=== PATIENT | female | born 1955 | race Caucasian/White ===

== ENCOUNTER 2016-05-02 12:05 | Observation (INO) | payer OTHER ==
[~2016-05-02] VITALS: Ht 157.5 cm; Wt 84.5 kg
[~2016-05-02 12:05] MED LIST: ALBU1AER9; ALBUAER19 INH; CHOL100010 PO; OMEG10007 PO; VITACAP26
[2016-05-02] MEDS ORDERED: CHOL100010 PO (12:50)
[2016-05-02] MEDS ORDERED: PRED10TA PO (12:53)
[2016-05-02 12:58] LABS: HEMATOCRIT 41.6 % (37-47); MEAN CELL VOLUME 83.7 fL (80-100); MEAN CORPUSCULAR HEMOGLOBIN 29.8 pg (25-34); MEAN CORPUSCULAR HGB CONC 35.6 g/dl (32-36); MEAN PLATELET VOLUME 9.3 fL (7.4-10.4); PLATELET COUNT 308 K/uL (130-400); RED BLOOD COUNT 4.97 M/uL (4.2-5.4); WHITE BLOOD COUNT 12.81 K/uL (4.8-10.8)
[2016-05-02 13:13] LABS: PARTIAL THROMBOPLASTIN RATIO 0.9; PROTHROMBIN TIME (PATIENT) 10.5 SECONDS (9.0-12.0)
[2016-05-02 13:14] LABS: ALT/SGPT 31 U/L (12-78); BLOOD UREA NITROGEN 25 mg/dl (7-18); BUN/CREATININE RATIO 22.4 (10-20); CALCIUM 10.1 mg/dl (8.5-10.1); CARBON DIOXIDE 24 mmol/L (21-32); CHLORIDE 104 mmol/L (98-107); GLUCOSE 145 mg/dl (70-99); POTASSIUM 3.9 mmol/L (3.5-5.1); SODIUM 140 mmol/L (136-145)
[2016-05-02 13:19] LABS: ALB/GLOB RATIO 1.4 (0.9-2); ALKALINE PHOSPHATASE 63 U/L (45-117); AST/SGOT 12 U/L (15-37)
--- NOTE | 2016-05-02 13:21 | DIAGNOSTIC IMAGING REPORT ---
CHEST ONE VIEW PORTABLE CLINICAL HISTORY: cp dyspnea COMPARISON STUDY: 06/06/2007 FINDINGS: The bones soft tissues and hemidiaphragms are normal. The cardiomediastinal silhouette is normal. The lungs are clear. The pulmonary vasculature is normal. IMPRESSION: Negative chest. Electronically signed by: Jonatan Alves M.D. 05/02/2016 1:19 PM Dictated Date/Time: 05/02/2016 1:19 PM
--- NOTE | 2016-05-02 15:13 | History and Physical ---
History & Physical Date & Time of Service: May 02, 2016 at 15:05 Chief Complaint: Chest Pressure, Shoulder Pain Primary Care Physician: Gary Black M.D. History of Present Illness Source: patient, hospital records This patient is a pleasant 60-year-old female that presents emergency department complaining of heaviness in her chest that started around 2 AM this morning. She is still experiencing the discomfort now. It has been fairly constant since it started. She describes it as a pressure-like sensation. she also complains of a squeezing sensation on both sides of her ribs. The pain is worse on the right side of her chest. It does not radiate to her arms or face. She tried taking Tums because she thought it was indigestion. This did not change the pain. She got up and walked around the bedroom, again the pain remained unchanged. She denies any shortness of breath. No nausea, dizziness or sweating. No recent syncopal or presyncopal episodes. The patient denies any personal history of coronary disease. She had a normal stress test approximately 5 years ago. The patient does note that she has been suffering from a cold over the last week. Her symptoms are improving. She has a history of asthma. She typically starts taking prednisone when she develops a cough so does not turn into long- term bronchitis. Her last dose of prednisone is tomorrow. She denies any fever or chills. Past Medical/Surgical History Hypertension Asthma Borderline diabetes Family History Diabetes mellitus FHx: cancer FHx: gallbladder disease Social History Smoking Status: Never Smoker Smokeless Tobacco Use: No Alcohol Use: none Drug Use: none Marital Status: Housing status: lives with family Occupational Status: employed Immunizations History of Influenza Vaccine: Yes History of Tetanus Vaccine?: Yes History of Pneumococcal: Yes History of Hepatitis B Vaccine: Yes Multi-Drug Resistant Organisms History of MDRO: No Allergies Coded Allergies: No Known Allergies (Verified , `, 05/02/16) Home Medications Scheduled Albuterol Hfa (Ventolin Hfa), 2-4 PUFFS INH Q6H Ascorbic Acid (Vitamin C), 500 MG PO DAILY Aspirin (Aspirin Ec), 81 MG PO DAILY Cholecalciferol (Vitamin D), 2,000 INTER.UNIT PO DAILY Lisinopril (Zestril), 10 MG PO DAILY Metformin Hcl (Glucophage), 500 MG PO BIDM Multivitamin (Multivitamin), 1 TAB PO DAILY Prednisone Tab (Prednisone), 10 MG PO DAILY Probiotic Product (Probiotic), 1 CAP PO DAILY Scheduled PRN Albuterol Sulf (Albuterol Sulfate), 2.5 MG NEB Q6H PRN for PRN Miscellaneous Medications Wheat Dextrin (Benefiber) Review of Systems 10 system review performed and negative unless noted in HPI or below Physical Exam Vital Signs Date Time Temp Pulse Resp B/P Pulse Ox O2 Delivery O2 Flow Rate FiO2 05/02/16 14:20 76 14 95 05/02/16 14:15 75 14 94 05/02/16 14:10 76 15 96 05/02/16 14:05 78 14 94 05/02/16 14:00 83 17 94 05/02/16 13:58 130/87 05/02/16 13:55 79 14 94 05/02/16 13:50 80 14 94 05/02/16 13:45 82 14 94 05/02/16 13:40 84 14 94 05/02/16 13:35 81 14 93 05/02/16 13:30 78 13 92 05/02/16 13:28 146/91 05/02/16 13:26 84 18 142/96 96 Room Air 05/02/16 13:25 83 17 96 05/02/16 13:24 142/96 05/02/16 13:00 84 17 96 05/02/16 12:59 193/111 05/02/16 12:55 90 18 96 05/02/16 12:53 37.0 100 18 163/96 96 Room Air 05/02/16 12:50 82 13 94 05/02/16 12:45 85 17 96 05/02/16 12:41 96 Room Air 05/02/16 12:40 92 20 94 05/02/16 12:35 88 26 05/02/16 12:32 100 05/02/16 12:30 96 16 05/02/16 12:28 143/83 05/02/16 12:24 98 Room Air 05/02/16 12:24 98 Room Air 05/02/16 12:10 37.0 98 18 163/96 98 Room Air General Appearance: no apparent distress Head: normocephalic Eyes: EOMI Neck: no JVD Respiratory/Chest: lungs clear Cardiovascular: regular rate, rhythm, + systolic murmur (very faint systolic murmur noted heard best at the left lower sternal border) Abdomen/GI: non tender, soft Extremities/Musculoskelatal: no calf tenderness, no pedal edema Neurologic/Psych: no motor/sensory deficits, oriented x 3 Skin: warm/dry Diagnostics Laboratory Results Results Past 24 Hours Test 05/02/16 12:30 05/02/16 12:45 Range/Units White Blood Count 12.81 4.8-10.8 K/uL Red Blood Count 4.97 4.2-5.4 M/uL Hemoglobin 14.8 12.0-16.0 g/dL Hematocrit 41.6 37-47 % Mean Corpuscular Volume 83.7 80-100 fL Mean Corpuscular Hemoglobin 29.8 25-34 pg Mean Corpuscular Hemoglobin Concent 35.6 32-36 g/dl RDW Standard Deviation 39.2 36.4-46.3 fL RDW Coefficient of Variation 13.1 11.5-14.5 % Platelet Count 308 130-400 K/uL Mean Platelet Volume 9.3 7.4-10.4 fL Prothrombin Time 10.5 9.0-12.0 SECONDS Prothromb Time International Ratio 1.0 0.9-1.1 Activated Partial Thromboplast Time 23.5 21.0-31.0 SECONDS Partial Thromboplastin Ratio 0.9 Sodium Level 140 136-145 mmol/L Potassium Level 3.9 3.5-5.1 mmol/L Chloride Level 104 98-107 mmol/L Carbon Dioxide Level 24 21-32 mmol/L Anion Gap 12.0 3-11 mmol/L Blood Urea Nitrogen 25 7-18 mg/dl Creatinine 1.10 0.60-1.20 mg/dl Est Creatinine Clear Calc Drug Dose 55.8 ml/min Estimated GFR () 63.2 Estimated GFR (Non- 54.5 BUN/Creatinine Ratio 22.4 10-20 Random Glucose 145 70-99 mg/dl Calcium Level 10.1 8.5-10.1 mg/dl Total Bilirubin 0.4 0.2-1 mg/dl Aspartate Amino Transf (AST/SGOT) 12 15-37 U/L Alanine Aminotransferase (ALT/SGPT) 31 12-78 U/L Alkaline Phosphatase 63 45-117 U/L Total Creatine Kinase 23 26-192 U/L Creatine Kinase MB < 0.5 0.5-3.6 ng/ml Creatine Kinase MB Ratio 0-3.0 Total Protein 7.2 6.4-8.2 gm/dl Albumin 4.2 3.4-5.0 gm/dl Globulin 3.0 2.5-4.0 gm/dl Albumin/Globulin Ratio 1.4 0.9-2 Bedside Troponin I 0.000 0-0.045 ng/ml CXR normal EKG Normal sinus rhythm with a rate of 88 bpm No acute ischemic changes noted Impression Assessment and Plan 60-year-old female presents emergency department complaining of a chest squeezing/pressure-like sensation for approximately 12 hours-? cardiac cause vs possibly GB disease chest pain -observe in telemetry -follow cardiac enzymes every 8 hr x 2 -daily EKG -EKG with worsening pain -continue ASA -US gallbladder -Nitro paste 1 in q 6 hr -check echo HTN -continue lisinopril 10 mg daily Borderline diabetes -Continue metformin 500 mg BID -Insulin sliding scale -Accu-Cheks in the morning, evening and with meals -Check hemoglobin A1c Asthma-lungs clear -Continue prednisone 10 mg daily DVT prophylaxis -Teds, SCDs -Early ambulation CODE STATUS -LEVEL I FULL CODE Level of Care Telemetry Resuscitation Status FULL NO CARDIOVERSION VTE Prophylaxis VTE Risk Assessment Done? Y/N: Yes Risk Level: Low Given or contraindicated: Kali Stockings, SCD's Assessment and Plan Attending Addendum: I have physically seen and examined this patient, have directed their medical care, have supervised the PA's activity, and agree with the H&P as noted above, with the following changes: NONE. The patient is awake, well-developed and adequately nourished, alert and oriented 3, normocephalic and atraumatic, lying in bed and in no acute distress. HEENT--PERRL, EOMI, mucous membranes and oropharynx moist. Neck--supple, no JVD or bruits, thyroid normal, trachea midline, no adenopathy. Heart--normal S1 and S2, no extra beats, no murmurs, rubs or gallops. Lungs--clear bilaterally with good air movement, no respiratory distress, no accessory muscle use. Abdomen--normal bowel sounds and soft, nontender and nondistended, no hernias or masses, no organomegaly. Extremities--no cyanosis, clubbing or edema. There are good distal pulses b/l. Dermatologic--normal skin turgor, normal color, warm and dry, no abnormal lymph nodes, no rash. Neurologic--cranial nerves II through XII grossly intact, motor and sensory examination normal. Rheumatologic--normal range of motion, nontender, muscles and joints. Psychiatric--normal affect. Assessment and Plan: Precordial chest discomfort--admitted to the telemetry unit, for serial critic enzymes, cardiac rhythm monitoring and a 2-D echocardiogram with Dopplers. Continue lisinopril 10 mg by mouth daily and aspirin 81 mg by mouth daily. If workup is negative, she'll need a stress echocardiogram prior to discharge.
[2016-05-02] MEDS ORDERED: ALUMINUM/MAGNESIUM/SIMETH (MAALOX MAX) 30 ML UDC PO PRN (15:15)
[2016-05-02] MEDS ORDERED: ACETAMINOPHEN 325 MG TAB PO PRN (15:15)
[2016-05-02] MEDS ORDERED: ONDANSETRON INJ 2 MG/ML 2 ML VIAL IV PRN (15:15)
--- NOTE | 2016-05-02 15:21 | EMERGENCY ROOM VISIT NOTE ---
History Report prepared by Portillo: Kae Nowak Under the Supervision of: Dr. Angel Oliva M.D. First contact with patient: 12:52 Chief Complaint: CHEST PAIN Stated Complaint: CHEST PRESSURE, SHOULDER PAIN Nursing Triage Summary: see triage note. at this time states chest pain and pain between shoulder blades "gone" but still feels funny History of Present Illness The patient is a 60 year old female who presents to the Emergency Room with complaints of resolved chest pain that started this morning around 0430. She states that it feels like someone is squeezing her sides. Nothing seems to make the pain better or worse. The pain woke the patient up from sleep and she could not get comfortable so she never went back to sleep. The patient got up and ate breakfast then she went grocery shopping. After grocery shopping, she developed a sharp pain between her shoulder blades along with pressure in her chest. She did not experience shortness of breath. She denies fevers along with recent antibiotic use. She also denies bowel or bladder problems, hematochezia, melena , numbness, and weakness. She is also experiencing lower extremity edema in her ankles, but she states that is not new. The patient states that she is getting over a cough, but she has not used her nebulizer for the past 3 days. She states that her cough is pretty much gone. The patient went to see her PCP for the cough and they started her on a prednisone taper. She finished the taper today. Additionally, the patient has been experiencing a persistent headache since her cough started. The patient takes a baby aspirin daily, but she has not taken one yet today. The patient has a history of hypertension and prediabetes. She denies any history of blood clots, trauma, or injury. She also denies any cardiac history. The patient adds that she experienced chest pain in 2008 with anxiety attacks. However, she denies any recent stress to cause her to have anxiety. The patient also states that she did not have the pain between her shoulder blades with that chest pain. The patient has not had a stress test recently. The patient adds that her mother had a cholecystectomy and her brother just recently had one also, so she was wondering if that was contributing to her symptoms. Source of History: patient Onset: this morning around 0430 Position: chest Quality: other (squeezing her sides) Timing: resolved Modifying Factors (Worsening): other (None) Modifying Factors (Relieving): other (None) Associated Symptoms: + headache, No SOB, No fevers, No hematochezia, No melena, No numbness, No weakness Note: no bowel or bladder problems Review of Systems See HPI for pertinent positives & negatives. A total of 10 systems reviewed and were otherwise negative. Past Medical & Surgical Medical Problems: (1) Asthma, Unspecified (2) Chest pain (3) Diab Donna Wo Compl, Type Ii Or Unspec Type, Not Uncntrld (4) Hypertension Nos Old medical records were reviewed. Nurse's notes were reviewed and I agree with. Family History Diabetes mellitus FHx: cancer FHx: gallbladder disease Social History Smoking Status: Never Smoker Marital Status: Housing Status: lives with family Current/Historical Medications Scheduled Albuterol Hfa (Ventolin Hfa), 2-4 PUFFS INH Q6H Ascorbic Acid (Vitamin C), 500 MG PO DAILY Aspirin (Aspirin Ec), 81 MG PO DAILY Cholecalciferol (Vitamin D), 2,000 INTER.UNIT PO DAILY Lisinopril (Zestril), 10 MG PO DAILY Metformin Hcl (Glucophage), 500 MG PO BIDM Multivitamin (Multivitamin), 1 TAB PO DAILY Prednisone Tab (Prednisone), 10 MG PO DAILY Probiotic Product (Probiotic), 1 CAP PO DAILY Scheduled PRN Albuterol Sulf (Albuterol Sulfate), 2.5 MG NEB Q6H PRN for PRN Miscellaneous Medications Wheat Dextrin (Benefiber) Allergies Coded Allergies: No Known Allergies (Verified , `, 05/02/16) Physical Exam Vital Signs Date Time Temp Pulse Resp B/P Pulse Ox O2 Delivery O2 Flow Rate FiO2 05/02/16 15:15 92 17 96 05/02/16 15:10 75 19 98 05/02/16 15:05 77 18 96 05/02/16 15:00 80 17 98 05/02/16 14:58 169/96 05/02/16 14:55 87 17 97 05/02/16 14:50 82 19 96 05/02/16 14:45 80 18 97 05/02/16 14:40 73 12 93 05/02/16 14:35 73 13 94 05/02/16 14:30 72 13 96 05/02/16 14:28 125/83 2/13/17 14:25 74 12 95 05/02/16 14:20 76 14 95 05/02/16 14:15 75 14 94 05/02/16 14:10 76 15 96 05/02/16 14:05 78 14 94 05/02/16 14:00 83 17 94 05/02/16 13:58 130/87 05/02/16 13:55 79 14 94 05/02/16 13:50 80 14 94 05/02/16 13:45 82 14 94 05/02/16 13:40 84 14 94 05/02/16 13:35 81 14 93 05/02/16 13:30 78 13 92 05/02/16 13:28 146/91 05/02/16 13:26 84 18 142/96 96 Room Air 05/02/16 13:25 83 17 96 05/02/16 13:24 142/96 05/02/16 13:00 84 17 96 05/02/16 12:59 193/111 05/02/16 12:55 90 18 96 05/02/16 12:53 37.0 100 18 163/96 96 Room Air 05/02/16 12:50 82 13 94 05/02/16 12:45 85 17 96 05/02/16 12:41 96 Room Air 05/02/16 12:40 92 20 94 05/02/16 12:35 88 26 05/02/16 12:32 100 05/02/16 12:30 96 16 05/02/16 12:28 143/83 05/02/16 12:24 98 Room Air 05/02/16 12:24 98 Room Air 05/02/16 12:10 37.0 98 18 163/96 98 Room Air Physical Exam General: Well developed well nourished non-ill appearing middle-aged female in no acute distress, breathing comfortably on room air. Normal speech HEENT: Normal cephalic atraumatic. Pupils are equal round and reactive to light. Extraocular movements are intact. Oropharynx is pink with moist mucous membranes. No swelling of the mouth lips or tongue. Neck: Supple with a midline trachea. No meningeal signs or stiffness, no JVD or bruits. No Stridor. Chest: Clear to auscultation bilaterally. No wheezes or rhonchi. No increased work of breathing. Heart: regular rate and rhythm. Abdomen: Soft nontender, nondistended without rebound guarding or rigidity. Extremities: Trace pedal edema bilaterally. No cyanosis or clubbing. No calf tenderness or assymetry Spine/Back. Non tender to palpation. No CVA tenderness Skin: Good turgor without rashes. Neurologic exam: Cranial nerves two through 12 are intact. Motor and sensation are intact and symmetrical throughout. Medical Decision & Procedures ER Provider Diagnostic Interpretation: X-ray results as stated below per interpretation by me and the radiologist: CHEST ONE VIEW PORTABLE IMPRESSION: Negative chest. Electronically signed by: Jonatan Alves M.D. 05/02/2016 1:19 PM Dictated Date/Time: 05/02/2016 1:19 PM Laboratory Results Test 05/02/16 12:30 05/02/16 12:45 Prothrombin Time 10.5 SECONDS (9.0-12.0) Prothromb Time International Ratio 1.0 (0.9-1.1) Activated Partial Thromboplast Time 23.5 SECONDS (21.0-31.0) Partial Thromboplastin Ratio 0.9 Total Bilirubin 0.4 mg/dl (0.2-1) Aspartate Amino Transf (AST/SGOT) 12 U/L (15-37) Alanine Aminotransferase (ALT/SGPT) 31 U/L (12-78) Alkaline Phosphatase 63 U/L (45-117) Total Protein 7.2 gm/dl (6.4-8.2) Albumin 4.2 gm/dl (3.4-5.0) Globulin 3.0 gm/dl (2.5-4.0) Albumin/Globulin Ratio 1.4 (0.9-2) Bedside Troponin I 0.000 ng/ml (0-0.045) Laboratory studies as stated above per my review. ECG Indication: chest pain Rate (beats per minute): 88 Rhythm: normal sinus Findings: no acute ischemic change, no ectopy Comparison ECG Date: 07/29/2009 Change: no significant change ED Course 1252: Past medical records reviewed. The patient was evaluated in room C12, and a complete history and physical examination were performed. 1439: I discussed the patient's case with Dr. Mitchell ST. The patient will be evaluated for further management. 1444: Upon reevaluation, the patient is resting comfortably. I discussed the results and treatment plan with the patient. She verbalized agreement of the treatment plan. The patient will be evaluated for further management. Medical Decision Differentials include, but are not limited to; acute coronary syndrome, arrhythmia, congestive heart failure, pulmonary embolism, gallbladder disease, electrolyte or metabolic abnormality. This patient comes in as described above. She's had intermittent chest pain. She does have a few cardiac risk factors and she appears well at present. She was placed on a cardiac technologist and room C 12 and an extensive workup was done. EKG, chest x-ray, and multiple blood testing was obtained. She has a nonischemic appearing EKG. Chest x-ray does not suggest heart failure or pneumonia or pneumothorax or cardiac enzymes are negative thus far. She's had nothing thus far to suggest gallbladder, liver, or pancreas disease. Given her cardiac risk factors, I do think she needs to be admitted to rule out acute cardiac events. I did consult the hospitalist group. He saw her in the ER and will admit her for these measures. Consults Time Called: [phone] Consulting Physician: Dr. Mitchell ST Returned Call: [phone] I discussed the patient's case with Dr. Mitchell ST. The patient will be evaluated for further management. Impression Primary Impression: Precordial chest pain Scribe Attestation The scribe's documentation has been prepared under my direction and personally reviewed by me in its entirety. I confirm that the note above accurately reflects all work, treatment, procedures, and medical decision making performed by me. Departure Information Dispostion Being Evaluated By Hospitalist Referrals Gary Black M.D. (PCP) Patient Instructions My [facility]
[2016-05-02] MEDS ORDERED: IV FLUIDS COMPLETED PRN (16:00)
--- NOTE | 2016-05-02 16:30 | DIAGNOSTIC IMAGING REPORT ---
ULTRASOUND RIGHT UPPER QUADRANT ABDOMEN CLINICAL HISTORY: Right upper quadrant abdominal pain. COMPARISON STUDY: Abdominal CT dated 09/20/2013. TECHNIQUE: Real-time, grayscale, and color flow sonography of the right upper quadrant of the abdomen was performed. Images are reviewed in the transverse and longitudinal planes. FINDINGS: Liver: The liver is normal in size and echotexture. There is no intrahepatic biliary ductal dilatation. The main portal vein is patent. A 2.6 cm cyst in the right lobe is unchanged. Gallbladder: The gallbladder is normal in appearance. No gallstones are identified. There is no gallbladder wall thickening or pericholecystic fluid. A sonographic Hutchins's sign is reportedly absent. The common bile duct measures up to 0.5 cm in diameter. Pancreas: Not visualized due to overlying bowel gas. Right kidney: Survey images of the right kidney demonstrate normal size and echotexture. There is no hydronephrosis. Ascites: None. IMPRESSION: 1. No acute sonographic abnormality is identified in the right upper quadrant. No gallstones are seen. 2. The pancreas was not well assessed due to overlying bowel gas. Electronically signed by: Real Flores M.D. 05/02/2016 4:28 PM Dictated Date/Time: 05/02/2016 4:27 PM
[2016-05-02 18:58] VITALS: BP 139/100; TEMP 37; O2SAT 93; Ht 157.5 cm; Wt 84.5 kg
[2016-05-02] MEDS ORDERED: GLUCAGON FOR INJ 1 MG VIAL SQ PRN (19:30)
[2016-05-02] MEDS ORDERED: GLUCOSE 10 TABS/TUBE PO PRN (19:30)
[2016-05-02] MEDS ORDERED: ALBUTEROL 0.083% NEBU SOLN 3 ML VIAL INH PRN (19:30)
[2016-05-02] MEDS ORDERED: DEXTROSE 50% 50 ML SYR IV PRN (19:30)
[2016-05-02] MEDS ORDERED: GLUCOSE 40% GEL 15 GM TUBE PO PRN (19:30)
[2016-05-02 19:57] VITALS: BP 126/84; PULSE 83; TEMP 36.8; O2SAT 93
[2016-05-02 20:00] VITALS: O2SAT 93
[2016-05-02] MEDS: NITROGLYCERIN OINT 2% 1GM PACKET EXT SCH (21:49)
[2016-05-02] MEDS: INSULIN ASPART 100 UNITS/ML 3 ML PEN SC SCH (21:49)
[2016-05-02] MEDS: ALBUTEROL HFA 8 GM INHALER INH SCH (21:50)
[2016-05-03] VITALS: O2SAT 93
[2016-05-03 00:15] VITALS: BP 109/71; PULSE 77; TEMP 36.7; O2SAT 93
[2016-05-03] MEDS ORDERED: ZOLPIDEM TARTRATE 5 MG TAB PO PRN (00:30)
[2016-05-03] MEDS: NITROGLYCERIN OINT 2% 1GM PACKET EXT SCH ×2 (02:00→08:00)
[2016-05-03] MEDS: ALBUTEROL HFA 8 GM INHALER INH SCH ×2 (02:00→08:00)
[2016-05-03 03:30] VITALS: BP 112/71; PULSE 75; TEMP 36.8; O2SAT 95
[2016-05-03 05:18] LABS: BASO % 0.4 %; BASO ABS # 0.04 K/uL (0-0.2); COMPLETE YES; HEMATOCRIT 41.6 % (37-47); IG% 0.2 %; LYMPH % 35.4 %; MEAN CELL VOLUME 83.7 fL (80-100); MEAN CORPUSCULAR HEMOGLOBIN 28.8 pg (25-34); MEAN CORPUSCULAR HGB CONC 34.4 g/dl (32-36); MEAN PLATELET VOLUME 9.3 fL (7.4-10.4); MONO % 11.4 %; NEUT % 50.6 %; PLATELET COUNT 286 K/uL (130-400); RED BLOOD COUNT 4.97 M/uL (4.2-5.4); WHITE BLOOD COUNT 9.88 K/uL (4.8-10.8)
[2016-05-03 06:09] VITALS: O2SAT 95
[2016-05-03 06:18] LABS: BLOOD UREA NITROGEN 20 mg/dl (7-18); BUN/CREATININE RATIO 22.2 (10-20); CALCIUM 8.9 mg/dl (8.5-10.1); CARBON DIOXIDE 26 mmol/L (21-32); CHLORIDE 108 mmol/L (98-107); CREATININE 0.89 mg/dl (0.60-1.20); GLUCOSE 93 mg/dl (70-99); MAGNESIUM 2.1 mg/dl (1.8-2.4); POTASSIUM 4.4 mmol/L (3.5-5.1); SODIUM 146 mmol/L (136-145)
[2016-05-03] MEDS: INSULIN ASPART 100 UNITS/ML 3 ML PEN SC SCH (06:30)
[2016-05-03 07:13] VITALS: BP 138/80; PULSE 76; TEMP 36.6; O2SAT 96
[2016-05-03] MEDS ORDERED: LACTOBACILLUS ACIDOPHILUS (FLORANEX) TAB PO SCH (08:00)
[2016-05-03] MEDS ORDERED: LISINOPRIL 10 MG TAB PO SCH (09:00)
[2016-05-03] MEDS ORDERED: CHOLECALCIFEROL 1000 INTER.UNIT TAB PO SCH (09:00)
[2016-05-03] MEDS ORDERED: ASPIRIN 81 MG ECTAB PO SCH (09:00)
[2016-05-03] MEDS ORDERED: MULTIVITAMIN TAB PO SCH (09:00)
[2016-05-03] MEDS ORDERED: ASCORBIC ACID 500 MG TAB PO SCH (09:00)
[2016-05-03 11:15] VITALS: BP 154/99; PULSE 81; TEMP 36.8; O2SAT 97
--- NOTE | 2016-05-03 15:18 | Discharge Summary ---
Discharge Summary Admission Date: May 02, 2016 at 15:18 Discharge Date: May 03, 2016 Immunizations: Have You Had Influenza Vaccine: Yes History of Tetanus Vaccine?: Yes History of Pneumococcal: Yes History of Hepatitis B Vaccine: Yes Hospital Course Patient was admitted for chest pain , r/o acs she realized that she is on observation and was afraid to have to pay a large bill this morning she left AMA before being seen or examined by me She was worn by nursing staff that she might have a serious consequences This includes examination of the patient, discharge planning, medication reconciliation, and communication with other providers. Discharge Instructions Please refer to the electronic Patient Visit Report (Discharge Instructions) for additional information.
--- NOTE | 2016-05-03 16:20 | ECHOCARDIOGRAM REPORT ---
*NOTICE TO RECEIVING DEMOCRAT AGENCY This information is strictly Confidential and protected under [place] law. [place] law prohibits you from making any further disclosure of this information unless further disclosure is expressly permitted by the written consent of the person to whom it pertains or is authorized by law. A general authorization for the release of medical or other information is not sufficient for this purpose. Hospital accepts no responsibility if the information is made available to any other person, INCLUDING THE PATIENT. Interpretation Summary * Name: CHUCKY NICHOLAS Study Date: 05/03/2016 08:20 AM BP: 138/80 mmHg * Patient Location: [facility] HR: 76 * : 1955 (M/d/yyyy) Gender: Female Height: 62 in * Age: 60 yrs Ethnicity: DC Weight: 192 lb * Ordering Physician: Inge Stevenson * Referring Physician: GLADYS * Performed By: Michaela Sosa RDCS * * Reason For Study: CHEST PAIN * BSA: 1.9 m2 * History: CHEST PAIN * -- Conclusions -- * Left ventricular systolic function is normal. * No regional wall motion abnormalities noted. * Ejection Fraction = 60-65%. * Grade I diastolic dysfunction, (abnormal relaxation pattern). * No valvular pathology. Procedure Details * A complete two-dimensional transthoracic echocardiogram was performed (2D, M-mode, Doppler and color flow Doppler). Left Ventricle * The left ventricle is normal in size. * There is normal left ventricular wall thickness. * Ejection Fraction = 60-65%. * Left ventricular systolic function is normal. * No regional wall motion abnormalities noted. Right Ventricle * The right ventricle is not well visualized. * The right ventricular systolic function is normal as assessed by tricuspid annular plane systolic excursion (TAPSE) (normal >1.5 cm). Atria * The left atrial size is normal. * Right atrial size is normal. * There is no evidence of atrial septal defect, but resolution does not allow assessment for a patent foramen ovale. Mitral Valve * The mitral valve is normal in structure and function. * There is no mitral valve stenosis. * Significant mitral regurgitation is absent. Tricuspid Valve * The tricuspid valve is not well visualized, but is grossly normal. * Significant tricuspid regurgitation is absent. Aortic Valve * The aortic valve is normal in structure and function. * No hemodynamically significant valvular aortic stenosis. * No aortic regurgitation is present. Pulmonic Valve * The pulmonary valve is not well seen, but the Doppler examination is normal without significant regurgitation or stenosis. Great Vessels * The aortic root is normal size. Pericardium/Pleural * There is no pericardial effusion. Great Vessels * Normal inferior vena cava size and collapsability with sniff indicates a normal right atrial pressure of 3 mmHg Left Ventricular Diastolic Function * Grade I diastolic dysfunction, (abnormal relaxation pattern). MMode 2D Measurements and Calculations IVSd 0.91 cm IVSs 1.3 cm LVIDd 3.7 cm LVIDs 2.4 cm LVPWd 0.86 cm LVPWs 1.2 cm IVS/LVPW 1.1 FS 36.7 % EDV(Teich) 59.1 ml ESV(Teich) 19.3 ml EF(Teich) 67.3 % EDV(cubed) 51.7 ml ESV(cubed) 13.1 ml EF(cubed) 74.6 % % IVS thick 42.4 % % LVPW thick 39.9 % LV mass(C)d 95.5 grams LV mass(C)dI 50.8 grams/m\S\2 LV mass(C)s 84.9 grams LV mass(C)sI 45.2 grams/m\S\2 SV(Teich) 39.7 ml SI(Teich) 21.2 ml/m\S\2 SV(cubed) 38.6 ml SI(cubed) 20.5 ml/m\S\2 Ao root diam 2.9 cm Ao root area 6.5 cm\S\2 LA dimension 2.5 cm LA/Ao 0.89 LVAd ap4 27.3 cm\S\2 LVLd ap4 8.0 cm EDV(MOD-sp4) 76.6 ml EDV(sp4-el) 79.2 ml LVAs ap4 14.7 cm\S\2 LVLs ap4 6.3 cm ESV(MOD-sp4) 29.3 ml ESV(sp4-el) 28.8 ml EF(MOD-sp4) 61.7 % EF(sp4-el) 63.7 % LVAd ap2 34.6 cm\S\2 LVLd ap2 8.8 cm EDV(MOD-sp2) 108.4 ml EDV(sp2-el) 115.7 ml LVAs ap2 17.3 cm\S\2 LVLs ap2 6.7 cm ESV(MOD-sp2) 37.7 ml ESV(sp2-el) 37.7 ml EF(MOD-sp2) 65.2 % EF(sp2-el) 67.5 % LVLd %diff 9.3 % EDV(MOD-bp) 97.1 ml LVLs %diff 5.7 % ESV(MOD-bp) 33.0 ml EF(MOD-bp) 66.0 % SV(MOD-sp4) 47.3 ml SI(MOD-sp4) 25.2 ml/m\S\2 SV(MOD-sp2) 70.7 ml SI(MOD-sp2) 37.6 ml/m\S\2 SV(MOD-bp) 64.1 ml SI(MOD-bp) 34.1 ml/m\S\2 SV(sp4-el) 50.4 ml SI(sp4-el) 26.8 ml/m\S\2 SV(sp2-el) 78.1 ml SI(sp2-el) 41.6 ml/m\S\2 Doppler Measurements and Calculations MV E max marisol 74.7 cm/sec MV A max marisol 105.7 cm/sec MV E/A 0.71 MV dec time 0.25 sec Ao V2 max 149.6 cm/sec Ao max PG 9.0 mmHg Ao max PG (full) 4.6 mmHg LV V1 max PG 4.4 mmHg LV V1 max 104.3 cm/sec
[2016-10-16] MEDS ORDERED: MULT-506 PO (10:20)
[2016-10-16] MEDS ORDERED: WHEATAB2 PO (10:56)
[2016-10-16] MEDS ORDERED: VNTHFA/IN INH (12:50)
[2016-10-16] MEDS ORDERED: ASCA500 PO (13:11)
[2016-10-16] MEDS ORDERED: MISCCAP80 PO (13:12)
[2016-11-10] MEDS ORDERED: ASCO100061 PO (09:50)
== END 2016-05-03 12:00 | disposition left against medical advice (07) ==
LOC: ENRESERVTM → ENRESERVDT → C.EDB 12:07 → C.MED 15:18
PROVIDERS: ADMIT Hospitalist; ATTEND Internal Medicine
DX: R07.9 Chest pain, unspecified (principal); J45.909 Unspecified asthma, uncomplicated; R73.03 Prediabetes; I10 Essential (primary) hypertension; Z79.899 Other long term (current) drug therapy; Z79.82 Long term (current) use of aspirin; Z79.84 Long term (current) use of oral hypoglycemic drugs; Z79.52 Long term (current) use of systemic steroids; Z83.3 Family history of diabetes mellitus

== ENCOUNTER → 2016-08-10 | Outpatient (CLI) | payer OTHER ==
[~2016-08-10] MED LIST changes: -ALBU1AER9; -ALBUAER19 INH; +ASCA500 PO; +ASCO100061 PO; +ASPI81TA28 PO; +CHOL200027 PO; +DICY20TA35 PO; +GLC/500 PO; +LISI-461 PO; +METR500T PO; +MISCCAP80 PO; +MULT-506 PO; -OMEG10007 PO; +PRED10TA PO; +PRVIN525 NEB; -VITACAP26; +VNTHFA/IN INH; +WHEATAB2 PO
[2016-08-10 12:13] LABS: HEMATOCRIT 44.1 % (37-47); MEAN CELL VOLUME 87.3 fL (80-100); MEAN CORPUSCULAR HEMOGLOBIN 29.1 pg (25-34); MEAN CORPUSCULAR HGB CONC 33.3 g/dl (32-36); MEAN PLATELET VOLUME 9.7 fL (7.4-10.4); PLATELET COUNT 314 K/uL (130-400); RED BLOOD COUNT 5.05 M/uL (4.2-5.4); WHITE BLOOD COUNT 7.19 K/uL (4.8-10.8)
[2016-08-10 12:27] LABS: ALT/SGPT 19 U/L (12-78); BLOOD UREA NITROGEN 24 mg/dl (7-18); BUN/CREATININE RATIO 21.7 (10-20); CARBON DIOXIDE 28 mmol/L (21-32); CHLORIDE 107 mmol/L (98-107); CHOLESTEROL 240 mg/dl (0-200); GLUCOSE 116 mg/dl (70-99); POTASSIUM 4.6 mmol/L (3.5-5.1); SODIUM 143 mmol/L (136-145); TRIGLYCERIDES 214 mg/dl (0-150); VERY LOW DENSITY LIPOPROT CALC 43 mg/dl
[2016-08-10 12:29] LABS: CALCIUM 9.3 mg/dl (8.5-10.1); ESTIMATED AVERAGE GLUCOSE 126 mg/dl; HA1C FLAG Normal (Normal)
[2016-08-10 12:37] LABS: ALB/GLOB RATIO 1.3 (0.9-2); ALKALINE PHOSPHATASE 72 U/L (45-117); AST/SGOT 12 U/L (15-37); CHOLESTEROL/HDL RATIO 3.8; HDL CHOLESTEROL 63 mg/dl; LDL CHOLESTEROL CALCULATED 134 mg/dl
== END | disposition home or self-care (01) ==
LOC: C.LABBFT 10:58
PROVIDERS: ATTEND Internal Medicine
DX: R73.01 Impaired fasting glucose (principal)

== ENCOUNTER 2016-10-16 17:57 | Emergency (ER) | payer OTHER ==
[~2016-10-16] VITALS: Ht 157.5 cm; Wt 83.2 kg
[~2016-10-16 17:57] MED LIST changes: -ASCO100061 PO; -ASPI81TA28 PO; -CHOL200027 PO; -DICY20TA35 PO; -GLC/500 PO; -LISI-461 PO; -METR500T PO; -PRVIN525 NEB
[2016-10-16 18:00] VITALS: TEMP 36.5; Ht 157.5 cm; Wt 83.2 kg
[2016-10-16] MEDS ORDERED: ONDANSETRON 8 MG/54 ML D5W IV STA (18:16)
[2016-10-16] MEDS ORDERED: MoRPHine SULFATE 4 MG/ML 1 ML CARP\\VIAL IV STA (18:16)
[2016-10-16] MEDS ORDERED: SODIUM CHLORIDE 0.9% 1000ML 1,000 ML IV STA (18:16)
[2016-10-16] MEDS ORDERED: GLC/500 PO (18:18)
[2016-10-16] MEDS ORDERED: PRVIN525 NEB (18:18)
[2016-10-16] MEDS ORDERED: ASPI81TA28 PO (18:18)
[2016-10-16] MEDS ORDERED: LISI-461 PO (18:18)
--- NOTE | 2016-10-16 18:25 | EMERGENCY ROOM VISIT NOTE ---
History Report prepared by Portillo: Toby Ervin Under the Supervision of: Dr. Yessy Barraza D.O. First contact with patient: 18:04 Chief Complaint: GI ASSESSMENT Stated Complaint: RT SIDE ABDOMINAL PAIN, DIARRHEA, BLOATING History of Present Illness The patient is a 60 year old female who presents to the Emergency Room with complaints of diffuse cramping abdominal pain that began 2 and a half weeks ago. She rates her pain a 7/10 in severity. At this time, she ate dinner but could not finish her food. This was because she immediately got bloated and felt extremely full. Soon after this, she began to feel nauseated and gassy. She then felt indigestion, abdominal cramping, and then she would have multiple episodes of diarrhea. This happened, there after, every time she would eat anything. She had an occasional break in her symptoms over these weeks, but it has mostly been constant since it began. When she does not eat, her symptoms resolve and improve, however she is still sore abdominally. She denies any fevers, chest pain, shortness of breath, vomiting, melena, hematochezia, or abnormal urinary symptoms. However, she is experiencing chills and diaphoresis with her diarrhea. She had four episodes of diarrhea today. She has a past medical history chronic constipation that requires her to have colonoscopes. Her last one was three years ago, and they found a polyp. Her next one is due soon. Because of her history of constipation, she takes Metamucil and watches what she eats carefully. She is also a prediabetic, so she is taking Metamucil. She has never had any other stomach of gastrointestinal problems. She denies any recent changes to her medications, any recent travels, or recent trauma. Prior to arrival, she took a Tylenol with Codeine. Source of History: patient Onset: 2 and a half weeks ago Position: abdomen (diffuse) Symptom Intensity: 7/10 Quality: cramping Timing: constant Modifying Factors (Worsening): eating Modifying Factors (Relieving): other (Fasting) Associated Symptoms: + chills, + diaphoresis, + nausea, + diarrhea, No fevers, No chest pain, No SOB, No vomiting, No melena, No hematochezia, No urinary symptoms Review of Systems See HPI for pertinent positives & negatives. A total of 10 systems reviewed and were otherwise negative. Past Medical & Surgical Medical Problems: (1) Asthma, Unspecified (2) Chest pain (3) Diab Donna Wo Compl, Type Ii Or Unspec Type, Not Uncntrld (4) Hypertension Nos Family History Diabetes mellitus FHx: cancer FHx: gallbladder disease Social History Smoking Status: Never Smoker Drug Use: none Marital Status: Housing Status: lives with family Occupation Status: employed Current/Historical Medications Scheduled Ascorbic Acid (Vitamin C), 500 MG PO QAM Aspirin (Aspirin Ec), 81 MG PO HS Cholecalciferol (Vitamin D-3), 2,000 INTER.UNIT PO QAM Dicyclomine Hcl (Bentyl), 20 MG PO Q8 Lisinopril (Zestril), 10 MG PO HS Metformin Hcl (Glucophage), 500 MG PO BIDM Metronidazole (Flagyl), 500 MG PO TID Multivitamin (Multivitamin), 1 TAB PO QAM Probiotic Product (Probiotic), 1 CAP PO QAM Wheat Dextrin (Benefiber), 1 TAB PO QAM Scheduled PRN Albuterol Hfa (Ventolin Hfa), 2-4 PUFFS INH Q6H PRN for SOB/Wheezing Albuterol Sulf (Albuterol Sulfate), 2.5 MG NEB Q6H PRN for SOB/Wheezing Allergies Coded Allergies: No Known Allergies (Verified , `, 05/02/16) Physical Exam Vital Signs Date Time Temp Pulse Resp B/P (MAP) Pulse Ox O2 Delivery O2 Flow Rate FiO2 10/16/16 22:47 78 18 132/78 98 10/16/16 21:13 74 18 138/83 98 Room Air 10/16/16 20:22 69 18 141/86 96 Room Air 10/16/16 19:08 67 18 147/81 96 Room Air 10/16/16 18:00 36.5 87 22 151/101 97 Room Air Physical Exam GENERAL: alert, well appearing, well nourished, mild distress, non-toxic EYE EXAM: normal conjunctiva, PERRL and EOM's grossly intact OROPHARYNX: no exudate, no erythema, lips, buccal mucosa, and tongue normal and mucous membranes are moist NECK: supple, no nuchal rigidity, no adenopathy, non-tender LUNGS: Clear to auscultation. Normal chest wall mechanics HEART: no murmurs, S1 normal and S2 normal ABDOMEN: abdomen soft, generalized abdominal discomfort, normo-active bowel sounds, no masses, no rebound or guarding. No organomegaly. BACK: Back is symmetrical on inspection and there is no deformity, no midline tenderness, no CVA tenderness. SKIN: no rashes and no bruising UPPER EXTREMITIES: upper extremities are grossly normal. LOWER EXTREMITIES: No pitting edema. NEURO EXAM: Normal sensorium, cranial nerves II-XII grossly intact, normal speech, no gross weakness of arms, no gross weakness of legs. Medical Decision & Procedures ER Provider Diagnostic Interpretation: Radiology results have been interpreted by the radiologist and reviewed by me. ABD/PELVIS IV AND ORAL CONT CT DOSE: 824.49 mGycm HISTORY: Pain abd pain, diarrhea TECHNIQUE: Multiaxial CT images of the abdomen and pelvis were performed following the use of intravenous and oral contrast. A dose lowering technique was utilized adhering to the principles of ALARA. COMPARISON STUDY: 09/20/2013 FINDINGS: Lung bases are clear. Small stable hepatic cysts. Liver is otherwise uniform. Pancreas is uniform. Kidneys are negative for hydronephrosis. There is no renal pelvis on the right. Bowel pattern is nonobstructive. The appendix is normal. There is suggestion of mild wall thickening of the descending colon as well as sigmoid. Mild nonspecific colitis is considered. IMPRESSION: 1. Mild nonspecific descending and sigmoid colitis. 2. No evidence for abscess collection or obstruction. 3. Small stable hepatic cyst. The above report was generated using voice recognition software. It may contain grammatical, syntax or spelling errors. Electronically signed by: Jonatan Alves M.D. 10/16/2016 9:15 PM Dictated Date/Time: 10/16/2016 9:11 PM Laboratory Results 10/16/16 18:50 Red Blood Count 5.10, Mean Corpuscular Volume 84.7, Mean Corpuscular Hemoglobin 29.6, Mean Corpuscular Hemoglobin Concent 35.0, Mean Platelet Volume 9.6, Neutrophils (%) (Auto) 47.4, Lymphocytes (%) (Auto) 19.5, Monocytes (%) (Auto) 8.1, Eosinophils (%) (Auto) 24.6, Basophils (%) (Auto) 0.3, Neutrophils # (Auto ) 6.58, Lymphocytes # (Auto) 2.70, Monocytes # (Auto) 1.12, Eosinophils # (Auto ) 3.41, Basophils # (Auto) 0.04 10/16/16 18:50 Test 10/16/16 18:15 10/16/16 18:50 Urine Color YELLOW Urine Appearance CLEAR (CLEAR) Urine pH 6.0 (4.5-7.5) Urine Specific [place] 1.014 (1.000-1.030) Urine Protein NEG (NEG) Urine Glucose (UA) NEG (NEG) Urine Ketones NEG (NEG) Urine Occult Blood NEG (NEG) Urine Nitrite NEG (NEG) Urine Bilirubin NEG (NEG) Urine Urobilinogen NEG (NEG) Urine Leukocyte Esterase TRACE (NEG) Urine WBC (Auto) 1-5 /hpf (0-5) Urine RBC (Auto) 0-4 /hpf (0-4) Urine Hyaline Casts (Auto) 0 /lpf (0-5) Urine Epithelial Cells (Auto) 0-5 /lpf (0-5) Urine Bacteria (Auto) NEG (NEG) White Blood Count 13.87 K/uL (4.8-10.8) Red Blood Count 5.10 M/uL (4.2-5.4) Hemoglobin 15.1 g/dL (12.0-16.0) Hematocrit 43.2 % (37-47) Mean Corpuscular Volume 84.7 fL (80-100) Mean Corpuscular Hemoglobin 29.6 pg (25-34) Mean Corpuscular Hemoglobin Concent 35.0 g/dl (32-36) Platelet Count 232 K/uL (130-400) Mean Platelet Volume 9.6 fL (7.4-10.4) Neutrophils (%) (Auto) 47.4 % Lymphocytes (%) (Auto) 19.5 % Monocytes (%) (Auto) 8.1 % Eosinophils (%) (Auto) 24.6 % Basophils (%) (Auto) 0.3 % Neutrophils # (Auto) 6.58 K/uL (1.4-6.5) Lymphocytes # (Auto) 2.70 K/uL (1.2-3.4) Monocytes # (Auto) 1.12 K/uL (0.11-0.59) Eosinophils # (Auto) 3.41 K/uL (0-0.5) Basophils # (Auto) 0.04 K/uL (0-0.2) RDW Standard Deviation 40.7 fL (36.4-46.3) RDW Coefficient of Variation 13.1 % (11.5-14.5) Immature Granulocyte % (Auto) 0.1 % Immature Granulocyte # (Auto) 0.02 K/uL (0.00-0.02) Anion Gap 8.0 mmol/L (3-11) Est Creatinine Clear Calc Drug Dose 69.6 ml/min Estimated GFR () 85.1 Estimated GFR (Non- 73.4 BUN/Creatinine Ratio 14.7 (10-20) Lactic Acid Level 1.0 mmol/L (0.4-2.0) Calcium Level 9.3 mg/dl (8.5-10.1) Total Bilirubin 0.3 mg/dl (0.2-1) Aspartate Amino Transf (AST/SGOT) 10 U/L (15-37) Alanine Aminotransferase (ALT/SGPT) 20 U/L (12-78) Alkaline Phosphatase 90 U/L (45-117) Total Protein 6.7 gm/dl (6.4-8.2) Albumin 3.7 gm/dl (3.4-5.0) Globulin 3.0 gm/dl (2.5-4.0) Albumin/Globulin Ratio 1.2 (0.9-2) Lipase 188 U/L (73-393) Date/Time Source Procedure Growth Status 10/16/16 22:35 Stool C.difficile Toxin B Gene (PCR) - Final No C. difficile toxin B gene detected Complete Laboratory results per my review. Medications Administered Medications (Trade) Dose Ordered Sig/[place] Route Start Time Stop Time Status Last Admin Dose Admin Sodium Chloride 1,000 ml @ 999 mls/hr Q1H1M STAT IV 10/16/16 18:16 10/16/16 19:16 DC 10/16/16 18:42 999 MLS/HR Morphine Sulfate (MoRPHine SULFATE INJ) 4 mg NOW STAT IV 10/16/16 18:16 10/16/16 18:20 DC 10/16/16 18:33 4 MG Ondansetron HCl (Zofran 8mg Iv) 8 mg NOW STAT IV 10/16/16 18:16 10/16/16 18:20 DC 10/16/16 18:32 8 MG Dicyclomine HCl (Bentyl Tab) 20 mg NOW STAT PO 10/16/16 21:24 10/16/16 21:25 DC 10/16/16 21:59 20 MG Metronidazole (Flagyl Tab) 500 mg NOW STAT PO 10/16/16 21:30 10/16/16 21:32 DC 10/16/16 21:57 500 MG ED Course 1803: The patient was evaluated in room C10. A complete history and physical exam was performed. 1815: Ordered Ondansetron HCl 8 mg IV, Morphine Sulfate 4 mg IV, Sodium Chloride 1000 ml @ 999 mls/hr IV 2123: Ordered Bentyl Tab 20 mg PO 2124: I updated the patient at this time. She has not had any more diarrhea, and her pain is better. 2129: Ordered Flagyl Tab 500 mg PO 2153: Bentyl Cap 20 mg .ROUTE 8: Upon reevaluation, the patient is feeling better. I discussed the findings and the treatment plan with the patient. She verbalizes agreement and understanding. She was discharged home. Medical Decision Differential diagnosis: Etiologies such as appendicitis, diverticulitis, PUD, biliary pathology, UTI, pancreatitis, obstruction, mesenteric ischemia, aortic pathology, infections, inflammatory bowel disease, renal colic, as well as others were entertained. Patient improved or following pain medication IV fluids and Bentyl. Patient tolerating by mouth at bedside without vomiting. No fevers. Patient with leukocytosis noted, was able to provide a stool specimen here just before discharge, and this was sent for culture. No prior history of colitis, discussed all CT findings with the patient. Patient states she is due for repeat colonoscopy as her last one was 3 years ago and she is seen more frequently due to a history of polyps. No history in her family of inflammatory bowel disease or IBS. Patient comfortable going home, follow family doctor as well as gastroenterology. Patient started on Flagyl here as a precaution pending culture results. Discussed with patient symptoms to watch and return for, possible differential diagnosis, she verbalized understanding was agreeable with plan. Doubt ischemic colitis despite patient's risk factors, no evidence of bacteremia /sepsis, no evidence of perforation, pathology or vascular pathology. Medication Reconcilliation Current Medication List: was personally reviewed by me Blood Pressure Screening Patient's blood pressure: Elevated blood pressure Blood pressure disposition: Elevated BP felt to be situational Impression Primary Impression: Abdominal pain Additional Impression: Colitis Scribe Attestation The scribe's documentation has been prepared under my direction and personally reviewed by me in its entirety. I confirm that the note above accurately reflects all work, treatment, procedures, and medical decision making performed by me. Departure Information Dispostion Home / Self-Care Prescriptions Metronidazole (FLAGYL) 500 Mg Tab 500 MG PO TID for 7 Days, #21 TAB Prov: Yessy Barraza, DO 10/16/16 Dicyclomine Hcl (BENTYL) 20 Mg Tab 20 MG PO Q8 for Pain, #20 TAB Prov: Yessy Barraza, DO 10/16/16 Referrals Gary Black M.D. (PCP) Forms HOME CARE DOCUMENTATION FORM, IMPORTANT VISIT INFORMATION Patient Instructions My [facility] Additional Instructions Please call and follow-up with your GI doctor regarding your colitis and recent diarrhea. If you develop any worsening pain or diarrhea, notice blood in your stool develop fevers/chills, vomiting, or you have any other new or concerning symptoms, please return to the emergency room. Please take the antibiotic as prescribed and try to take stool cultures to your PCP or GI doctor. You may use the bowel spasm medicine as prescribed. Problem Qualifiers Primary Impression: Abdominal pain Abdominal location: generalized Qualified Codes: R10.84 - Generalized abdominal pain
[2016-10-16 18:31] LABS: MANUAL MICROSCOPIC REQUIRED? NO; REVIEW REQ? NO; URINE APPEARANCE CLEAR (CLEAR); URINE BILIRUBIN NEG (NEG); URINE COLOR YELLOW; URINE EPITHELIAL CELL AUTO 0-5 /lpf (0-5); URINE NITRITE NEG (NEG); URINE SPECIFIC GRAVITY 1.014 (1.000-1.030); UROBILINOGEN NEG (NEG); ZZUR CULT IF INDIC CLEAN CATCH NO
[2016-10-16] MEDS ORDERED: CHOL200027 PO (18:50)
[2016-10-16 19:01] LABS: BASO % 0.3 %; BASO ABS # 0.04 K/uL (0-0.2); COMPLETE YES; EOS % 24.6 %; HEMATOCRIT 43.2 % (37-47); IG% 0.1 %; LYMPH % 19.5 %; MEAN CELL VOLUME 84.7 fL (80-100); MEAN CORPUSCULAR HEMOGLOBIN 29.6 pg (25-34); MEAN PLATELET VOLUME 9.6 fL (7.4-10.4); MONO % 8.1 %; NEUT % 47.4 %; PLATELET COUNT 232 K/uL (130-400); WHITE BLOOD COUNT 13.87 K/uL (4.8-10.8)
[2016-10-16 19:19] LABS: BUN/CREATININE RATIO 14.7 (10-20); CALCIUM 9.3 mg/dl (8.5-10.1); CREATININE 0.86 mg/dl (0.60-1.20); POTASSIUM 4.2 mmol/L (3.5-5.1)
[2016-10-16 19:22] LABS: ALB/GLOB RATIO 1.2 (0.9-2)
[2016-10-16] MEDS ORDERED: OPTIRAY 320 IV PRN (21:15)
--- NOTE | 2016-10-16 21:16 | DIAGNOSTIC IMAGING REPORT ---
ABD/PELVIS IV AND ORAL CONT CT DOSE: 824.49 mGycm HISTORY: Pain abd pain, diarrhea TECHNIQUE: Multiaxial CT images of the abdomen and pelvis were performed following the use of intravenous and oral contrast. A dose lowering technique was utilized adhering to the principles of ALARA. COMPARISON STUDY: 09/20/2013 FINDINGS: Lung bases are clear. Small stable hepatic cysts. Liver is otherwise uniform. Pancreas is uniform. Kidneys are negative for hydronephrosis. There is no renal pelvis on the right. Bowel pattern is nonobstructive. The appendix is normal. There is suggestion of mild wall thickening of the descending colon as well as sigmoid. Mild nonspecific colitis is considered. IMPRESSION: 1. Mild nonspecific descending and sigmoid colitis. 2. No evidence for abscess collection or obstruction. 3. Small stable hepatic cyst. The above report was generated using voice recognition software. It may contain grammatical, syntax or spelling errors. Electronically signed by: Jonatan Alves M.D. 10/16/2016 9:15 PM Dictated Date/Time: 10/16/2016 9:11 PM
[2016-10-16] MEDS ORDERED: DICYCLOMINE HCL 20 MG TAB PO STA (21:24)
[2016-10-16] MEDS ORDERED: METRONIDAZOLE 250 MG TAB PO STA (21:30)
[2016-10-16] MEDS ORDERED: DICYCLOMINE HCL 10 MG CAP ONE (21:54)
[2016-10-16] MEDS ORDERED: DICY20TA35 PO (21:58)
[2016-10-16] MEDS ORDERED: METR500T PO (21:58)
[2016-10-16 22:47] VITALS: BP 132/78; PULSE 78; O2SAT 98
[2016-11-10] MEDS ORDERED: ASCO100061 PO (09:50)
== END 2016-10-16 22:48 | disposition home or self-care (01) ==
LOC: C.EDB 17:58 → C.EDC 22:48
DX: R10.84 Generalized abdominal pain (principal); K52.9 Noninfective gastroenteritis and colitis, unspecified; R19.7 Diarrhea, unspecified; E11.9 Type 2 diabetes mellitus without complications; I10 Essential (primary) hypertension; J45.909 Unspecified asthma, uncomplicated; Z79.82 Long term (current) use of aspirin; Z79.84 Long term (current) use of oral hypoglycemic drugs; Z79.899 Other long term (current) drug therapy; Z83.3 Family history of diabetes mellitus; Z83.79 Family history of other diseases of the digestive system

== ENCOUNTER → 2016-10-18 | Outpatient (CLI) | payer OTHER ==
[~2016-10-18] MED LIST changes: +ASCO100061 PO; +ASPI81TA28 PO; -CHOL100010 PO; +CHOL200027 PO; +DICY20TA35 PO; +GLC/500 PO; +LISI-461 PO; +METR500T PO; -PRED10TA PO; +PRVIN525 NEB
[2016-10-18 12:28] LABS: BASO % 0.3 %; BASO ABS # 0.03 K/uL (0-0.2); COMPLETE YES; EOS % 28.4 %; HEMATOCRIT 44.2 % (37-47); IG% 0.1 %; LYMPH % 21.4 %; LYMPH ABS # 1.98 K/uL (1.2-3.4); MEAN CELL VOLUME 85.8 fL (80-100); MEAN CORPUSCULAR HEMOGLOBIN 28.3 pg (25-34); MEAN PLATELET VOLUME 10.3 fL (7.4-10.4); MONO % 9.1 %; NEUT % 40.7 %; PLATELET COUNT 259 K/uL (130-400); RED BLOOD COUNT 5.15 M/uL (4.2-5.4); WHITE BLOOD COUNT 9.25 K/uL (4.8-10.8)
[2016-10-18 12:37] LABS: ESTIMATED AVERAGE GLUCOSE 128 mg/dl; HA1C FLAG Normal (Normal)
[2016-10-18 12:56] LABS: ALB/GLOB RATIO 1.3 (0.9-2); ALT/SGPT 20 U/L (12-78); AST/SGOT 11 U/L (15-37); BLOOD UREA NITROGEN 12 mg/dl (7-18); BUN/CREATININE RATIO 13.2 (10-20); CALCIUM 8.9 mg/dl (8.5-10.1); CARBON DIOXIDE 27 mmol/L (21-32); CHLORIDE 111 mmol/L (98-107); CHOLESTEROL 202 mg/dl (0-200); CHOLESTEROL/HDL RATIO 3.8; CREATININE 0.93 mg/dl (0.60-1.20); GLUCOSE 119 mg/dl (70-99); HDL CHOLESTEROL 53 mg/dl; LDL CHOLESTEROL CALCULATED 113 mg/dl; POTASSIUM 4.4 mmol/L (3.5-5.1); SODIUM 142 mmol/L (136-145); TRIGLYCERIDES 179 mg/dl (0-150); VERY LOW DENSITY LIPOPROT CALC 36 mg/dl
[2016-10-18 13:06] LABS: ALKALINE PHOSPHATASE 84 U/L (45-117); THYROID STIMULATING HORMONE 0.951 uIu/ml (0.300-4.500)
== END | disposition home or self-care (01) ==
LOC: C.LABBFT 08:35
PROVIDERS: ATTEND Nurse Practitioner
DX: I10 Essential (primary) hypertension (principal); R73.01 Impaired fasting glucose; K52.9 Noninfective gastroenteritis and colitis, unspecified

== ENCOUNTER → 2016-11-03 | Outpatient (CLI) | payer OTHER ==
[~2016-11-03] MED LIST changes: -DICY20TA35 PO; -METR500T PO; +OPTIRAY 320 IV PRN
--- NOTE | 2016-11-03 13:14 | DIAGNOSTIC IMAGING REPORT ---
ABDOMEN AND PELVIS CT WITH IV AND ORAL CONTRAST CT DOSE: 885.75 mGycm HISTORY: R19.4 Change in bowel [id number] diffuse Abdominal painR10.9 Abdominal TECHNIQUE: Multiaxial CT images of the abdomen and pelvis were performed following the use of intravenous and oral contrast. A dose lowering technique was utilized adhering to the principles of ALARA. COMPARISON STUDY: Abdomen and pelvis CT 10/16/2016. FINDINGS: The lung bases are clear. No pneumoperitoneum. No pneumatosis. Stable 1.9 cm cyst within the right hepatic lobe. The bladder, spleen, pancreas, and adrenal glands are unremarkable. A 3 mm stone within the left kidney. The bladder, uterus, and ovaries are unremarkable. No ureteral stones. No hydronephrosis. No retroperitoneal lymphadenopathy. No bowel wall thickening or obstruction. Normal appendix. IMPRESSION: 1. No bowel wall thickening or obstruction. 2. Normal appendix. 3. Left-sided nephrolithiasis. No hydronephrosis. Electronically signed by: Galdino Maza M.D. 11/03/2016 1:13 PM Dictated Date/Time: 11/03/2016 1:06 PM
== END | disposition home or self-care (01) ==
LOC: C.CTS 10:32
PROVIDERS: ATTEND Physician Assistant
DX: R19.4 Change in bowel habit (principal); R10.9 Unspecified abdominal pain

== ENCOUNTER → 2016-11-15 | Day surgery (SDC) | payer OTHER ==
[2016-11-10 09:51] VITALS: BMI 33.0
[~2016-11-15] VITALS: Ht 157.5 cm; Wt 82.7 kg
[~2016-11-15] MED LIST changes: -ASCA500 PO; -OPTIRAY 320 IV PRN; +SODIUM CHLORIDE 0.9% 500ML 500 ML IV ONE; -WHEATAB2 PO
[2016-11-15 07:58] VITALS: Ht 157.5 cm; Wt 82.7 kg
[2016-11-15 08:09] VITALS: TEMP 36.6
--- NOTE | 2016-11-15 08:22 | Endo History and Physical ---
History & Physical Date of Service: Nov 15, 2016. Chief Complaint: COLITIS Referring Physician: DR. FRAUSTO History of Present Illness 60 yo CF who presents for colonoscopy secondary to history of colon polyps. Past Medical History Diabetes, Asthma, Hypertension Past Surgical History Hx Cardiac Surgery: No Hx Internal Defibrillator: No Hx Pacemaker: No Hx Abdominal Surgery: Yes (FORCEPS DELIVERY, UTERINE ABLATION, ABDOMINOPLASTY WITH REVISION X2) Hx of Implantable Prosthesis: No Hx Post-Op Nausea and Vomiting: No Hx Cancer Surgery: No Hx Thoracic Surgery: No Hx Orthopedic: No Hx Urinary Tract Surgery: No Family History None Social History Smoking Status: Never Smoker Hx Substance Use: No Hx Alcohol Use: Yes (OCCASIONAL) Allergies Coded Allergies: No Known Allergies (Verified , `, 11/15/16) Current Medications Reported Home Medications Medications Dose Route/Sig Max Daily Dose Days Date Category Ascorbic Acid 1,000 Mg Tab 1 Tab PO QAM 11/10/16 Reported Vitamin D-3 (Cholecalciferol) 2,000 Unit Tab 2 Tabs PO QAM 10/16/16 Reported Probiotic (Probiotic Product) 1 Cap Cap 1 Cap PO QAM 05/02/16 Reported Ventolin Hfa (Albuterol) 200 Puffs/17833 Mcg Aers 2-4 Puffs INH Q6H PRN 05/02/16 Reported Albuterol Sulfate (Albuterol Sulf) 2.5 Mg/0.5 Ml Nebu 2.5 Mg NEB Q6H PRN 09/20/13 Reported Zestril (Lisinopril) 10 Mg Tab 10 Mg PO HS 09/20/13 Reported Glucophage (Metformin Hcl) 500 Mg Tab 500 Mg PO BIDM 09/20/13 Reported Aspirin Ec (Aspirin) 81 Mg Tab 81 Mg PO HS 09/20/13 Reported Multivitamin (Multivitamins) Tab 1 Tab PO QAM 11/14/08 Reported Vital Signs Weight (Kilograms): 82.73 Height (Feet): 5 Height (Inches): 2 Date Time Temp Pulse Resp B/P (MAP) Pulse Ox O2 Delivery O2 Flow Rate FiO2 11/15/16 08:09 36.6 87 18 138/87 (104) 95 Room Air Physical Exam General Appearance: WD/WN, no apparent distress Respiratory/Chest: Auscultation: breath sounds normal Cardiovascular: Heart Auscultation: RRR Abdomen: Bowel Sounds: normal Inspection & Palpation: soft, non-distended, no tenderness, guarding & rebound Assessment and Plan Assessment: 60 yo CF who presents for colonoscopy secondary to history of colon polyps. Plan: Proceed with colonoscopy.
--- NOTE | 2016-11-15 09:01 | Discharge Instructions ---
Endoscopy Patient Instructions Date / Procedure(s) Performed Nov 15, 2016. Colonoscopy Allergy Information Coded Allergies: No Known Allergies (Verified , `, 11/15/16) Discharge Date / Findings Nov 15, 2016. Ascending colon polyp Internal hemorrhoids Medication Instructions Stopped Medication(s): METFORMIN AND ASA OK to resume all medications today as prescribed Reported Home Medications Medications Dose Route/Sig Max Daily Dose Days Date Category Ascorbic Acid 1,000 Mg Tab 1 Tab PO QAM 11/10/16 Reported Vitamin D-3 (Cholecalciferol) 2,000 Unit Tab 2 Tabs PO QAM 10/16/16 Reported Probiotic (Probiotic Product) 1 Cap Cap 1 Cap PO QAM 05/02/16 Reported Ventolin Hfa (Albuterol) 200 Puffs/55014 Mcg Aers 2-4 Puffs INH Q6H PRN 05/02/16 Reported Albuterol Sulfate (Albuterol Sulf) 2.5 Mg/0.5 Ml Nebu 2.5 Mg NEB Q6H PRN 09/20/13 Reported Zestril (Lisinopril) 10 Mg Tab 10 Mg PO HS 09/20/13 Reported Glucophage (Metformin Hcl) 500 Mg Tab 500 Mg PO BIDM 09/20/13 Reported Aspirin Ec (Aspirin) 81 Mg Tab 81 Mg PO HS 09/20/13 Reported Multivitamin (Multivitamins) Tab 1 Tab PO QAM 11/14/08 Reported Provider Instructions Activity Restrictions - No exercising or heavy lifting for 24 hours. - Do not drink alcohol the day of the procedure. - Do not drive a car or operate machinery until the day after the procedure. - Do not make any important decisions or sign important papers in 24 hours after the procedure. Following Day: - Return to full activity which may include returning to work/school. Diet Start your diet with liquids and light foods (jello, soup, juice, toast). Then eat your usual diet if not nauseated. Treatment For Common After Affects For mild abdominal pain, bloating, or excessive gas: - Rest - Eat lightly - Lie on right side Follow-Up Information Follow-up with DR. FRAUSTO as scheduled Anesthesia Information What You Should Know You have had a procedure that required some medicine to reduce anxiety and discomfort. This treatment is called moderate sedation. After receiving the treatment, you may be sleepy, but you will be able to breathe on your own. The effects of the treatment may last for several hours. Follow these instructions along with Activity/Diet recommendations noted above: * Do NOT do anything where dizziness or clumsiness would be dangerous. * Rest quietly at home today, then you can be up and about tomorrow. * Have a responsible person stay with you the rest of today. * You may have had an I.V. today. If so, you may take the dressing off later today. Recommendations Call your doctor if: * Trouble breathing * Continuous vomiting for more than 24 hours * Temperature above 101 degrees * Severe abdominal pain or bloating * Pain not relieved by pain medicine ordered * There is increased drainage or redness from any incision * A large amount of rectal bleeding greater than 2-3 tablespoons. (If you had a polyp/s removed or have hemorrhoids, a small amount of blood - from the rectum is to be expected.) * You have any unanswered questions or concerns. IN THE EVENT OF A SERIOUS EMERGENCY, GO TO THE NEAREST EMERGENCY ROOM Your discharge instructions were prepared by provider Herbert Michel. Patient Instructions Signature Page Eli Carrizales Patient (or Guardian) Signature/Date: I have read and understand the instructions given to me by my caregivers. Caregiver/RN/Doctor Signature/Date: The above-named patient and/or guardian has received patient instructions on this date. + Original Patient Signature Page (only) stays with chart. Please make copy for patient.
--- NOTE | 2016-11-15 09:11 | GI REPORT ---
Procedure Date: 11/15/2016 8:14 AM Procedure: Colonoscopy Indications: High risk colon cancer surveillance: Personal history of colonic polyps Medicines: Monitored Anesthesia Care Complications: No immediate complications. Estimated Blood Loss: Estimated blood loss: none. Procedure: Pre-Anesthesia Assessment: - Prior to the procedure, a History and Physical was performed, and patient medications and allergies were reviewed. The patient's tolerance of previous anesthesia was also reviewed. The risks and benefits of the procedure and the sedation options and risks were discussed with the patient. All questions were answered, and informed consent was obtained. Prior Anticoagulants: The patient has taken aspirin, last dose was 7 days prior to procedure. ASA Grade Assessment: II - A patient with mild systemic disease. After reviewing the risks and benefits, the patient was deemed in satisfactory condition to undergo the procedure. After I obtained informed consent, the scope was passed under direct vision. Throughout the procedure, the patient's blood pressure, pulse, and oxygen saturations were monitored continuously. The Scope was introduced through the anus and advanced to the terminal ileum. The colonoscopy was performed without difficulty. The patient tolerated the procedure well. The quality of the bowel preparation was good. The terminal ileum, ileocecal valve, appendiceal orifice, and rectum were photographed. Findings: A 4 mm polyp was found in the ascending colon. The polyp was sessile. The polyp was removed with a hot snare. Resection and retrieval were complete. Non-bleeding internal hemorrhoids were found during retroflexion. The hemorrhoids were small. Impression: - One 4 mm polyp in the ascending colon, removed with a hot snare. Resected and retrieved. - Non-bleeding internal hemorrhoids. Recommendation: - Resume previous diet. - Continue present medications. - Repeat colonoscopy for surveillance based on pathology results. - Return to primary care physician as previously scheduled. Herbert Michel DO 11/15/2016 9:10:38 AM This report has been signed electronically. Note Initiated On: 11/15/2016 8:14 AM I attest to the content of the Intraoperative Record and orders documented therein, exceptions below
--- NOTE | 2016-11-15 09:11 | Anesthesiology Progress Note ---
Anesthesia Post Op Note Date & Time Nov 15, 2016 at 09:11 Vital Signs Pain Intensity: 3 Vital Signs Past 12 Hours Date Time Temp Pulse Resp B/P (MAP) Pulse Ox O2 Delivery O2 Flow Rate FiO2 11/15/16 08:58 85 18 112/74 (87) 97 Room Air 11/15/16 08:09 36.6 87 18 138/87 (104) 95 Room Air Notes Mental Status: alert / awake / arousable, participated in evaluation Pt Amnestic to Procedure: Yes Nausea / Vomiting: adequately controlled Pain: adequately controlled Airway Patency, RR, SpO2: stable & adequate BP & HR: stable & adequate Hydration State: stable & adequate Anesthetic Complications: no major complications apparent
[2016-11-15 09:29] VITALS: BP 106/80; PULSE 71; O2SAT 98
== END | disposition home or self-care (01) ==
LOC: C.GI 07:48
PROVIDERS: ATTEND Internal Medicine
DX: Z12.11 Encounter for screening for malignant neoplasm of colon (principal); D12.2 Benign neoplasm of ascending colon; K64.8 Other hemorrhoids; K52.9 Noninfective gastroenteritis and colitis, unspecified; E11.9 Type 2 diabetes mellitus without complications; I10 Essential (primary) hypertension; J45.909 Unspecified asthma, uncomplicated; Z86.010 Personal history of colon polyps

== ENCOUNTER → 2017-01-31 | Outpatient (CLI) | payer OTHER ==
[~2017-01-31] MED LIST changes: -SODIUM CHLORIDE 0.9% 500ML 500 ML IV ONE
--- NOTE | 2017-02-01 07:44 | MAMMOGRAPHY REPORT ---
BILATERAL DIGITAL SCREENING MAMMOGRAM TOMOSYNTHESIS WITH CAD: 01/31/2017 CLINICAL HISTORY: Routine screening. Patient has no complaints. TECHNIQUE: Breast tomosynthesis in addition to standard 2D mammography was performed. Current study was also evaluated with a Computer Aided Detection (CAD) system. COMPARISON: Comparison is made to exams dated: 06/03/2015 mammogram, 09/06/2013 mammogram, 05/13/[address] [facility], 10/09/2008, and 06/26/2007. BREAST COMPOSITION: The tissue of both breasts is almost entirely fatty. FINDINGS: A small nodular asymmetry in the lateral left breast appears very similar to the 2013 and 2008 mammograms, most likely normal overlapping tissue. No new suspicious mass, architectural distort ion or cluster of microcalcifications is seen. IMPRESSION: ACR BI-RADS CATEGORY 2: BENIGN There is no mammographic evidence of malignancy. A 1 year screening mammogram is recommended. The pa tient will receive written notification of the results. Approximately 10% of breast cancers are not detected with mammography. A negative mammographic report should not delay biopsy if a clinically suggestive mass is present. Angelica Gallo M.D. ay/:01/31/2017 16:52:04 Customs Inspector: Henny ENGLE(Dianne)(Kate)([place]), [facility] letter sent: Normal 1/2 BI-RADS Code: ACR BI-RADS Category 2: Benign
== END | disposition home or self-care (01) ==
LOC: C.MAMM 13:44
PROVIDERS: ATTEND Internal Medicine
DX: Z12.31 Encounter for screening mammogram for malignant neoplasm of breast (principal)

== ENCOUNTER 2017-05-19 08:23 | Inpatient (IN) | payer OTHER ==
[2017-05-15 10:50] VITALS: Ht 156.2 cm; Wt 89.0 kg
--- NOTE | 2017-05-15 11:32 | PAT Medication Instructions ---
Service Date May 15, 2017. Current Home Medication List Albuterol Hfa (Ventolin Hfa), 2-4 PUFFS INH Q6H PRN for SOB/Wheezing Albuterol Sulf (Albuterol Sulfate), 2.5 MG NEB Q6H PRN for SOB/Wheezing Aspirin (Aspirin Ec), 81 MG PO HS Cholecalciferol (Vitamin D-3), 2 TABS PO QAM Lisinopril (Zestril), 10 MG PO HS Metformin Hcl (Glucophage), 500 MG PO BIDM Multivitamin (Multivitamin), 1 TAB PO QAM Probiotic Product (Probiotic), 1 CAP PO QAM Propranolol (Inderal), 60 MG PO HS Medication Instructions For Your Scheduled Surgery - Hold the following medications the morning of surgery: Cholecalciferol (Vitamin D-3), 2 TABS PO QAM Metformin Hcl (Glucophage), 500 MG PO BIDM Multivitamin (Multivitamin), 1 TAB PO QAM Probiotic Product (Probiotic), 1 CAP PO QAM - Take the following medications the morning of surgery with a sip of water: Albuterol Hfa (Ventolin Hfa), 2-4 PUFFS INH Q6H PRN for SOB/Wheezing (if needed , and bring it with you to the hospital) Albuterol Sulf (Albuterol Sulfate), 2.5 MG NEB Q6H PRN for SOB/Wheezing (if needed) - Take the following medications as scheduled the night before surgery: Albuterol Hfa (Ventolin Hfa), 2-4 PUFFS INH Q6H PRN for SOB/Wheezing (if needed ) Albuterol Sulf (Albuterol Sulfate), 2.5 MG NEB Q6H PRN for SOB/Wheezing (if needed) Aspirin (Aspirin Ec), 81 MG PO HS Lisinopril (Zestril), 10 MG PO HS Propranolol (Inderal), 60 MG PO HS Metformin Hcl (Glucophage), 500 MG PO BIDM If you have any questions please call us at [phone] or [phone] or [phone]
[2017-05-15 12:15] LABS: BASO % 0.5 %; BASO ABS # 0.03 K/uL (0-0.2); EOS % 3.1 %; EOS ABS # 0.18 K/uL (0-0.5); HEMATOCRIT 41.4 % (37-47); HEMOGLOBIN 14.2 g/dL (12.0-16.0); IG# 0.01 K/uL (0.00-0.02); LYMPH % 29.5 %; LYMPH ABS # 1.71 K/uL (1.2-3.4); MEAN CELL VOLUME 85.5 fL (80-100); MEAN CORPUSCULAR HEMOGLOBIN 29.3 pg (25-34); MEAN CORPUSCULAR HGB CONC 34.3 g/dl (32-36); MEAN PLATELET VOLUME 9.5 fL (7.4-10.4); MONO % 10.7 %; MONO ABS # 0.62 K/uL (0.11-0.59); NEUT ABS # 3.25 K/uL (1.4-6.5); PLATELET COUNT 246 K/uL (130-400); RED CELL DISTRIBUTION WIDTH SD 40.7 fL (36.4-46.3)
[2017-05-15 12:22] LABS: CALCIUM 9.6 mg/dl (8.5-10.1); CREATININE 0.94 mg/dl (0.60-1.20); POTASSIUM 4.7 mmol/L (3.5-5.1)
--- NOTE | 2017-05-15 12:29 | DIAGNOSTIC IMAGING REPORT ---
CHEST 2 VIEWS ROUTINE CLINICAL HISTORY: 61 years-old Female presenting with preoperative assessment. TECHNIQUE: PA and lateral views of the chest were obtained. COMPARISON: 05/02/2016. FINDINGS: Cardiomediastinal silhouette normal. Lungs and pleural spaces clear. Osseous structures normal. Upper abdomen normal. IMPRESSION: 1. No acute cardiopulmonary disease. Electronically signed by: Odilon Leos M.D. 05/15/2017 12:27 PM Dictated Date/Time: 05/15/2017 12:27 PM
[2017-05-15 12:31] LABS: PTT PATIENT 24.5 SECONDS (21.0-31.0)
[2017-05-15 12:39] LABS: HEMOGLOBIN A1C 5.8 % (4.5-5.6)
--- NOTE | 2017-05-18 09:31 | HISTORY & PHYSICAL EXAMINATION ---
DATE OF ADMISSION: 05/19/2017 CHIEF COMPLAINT: Right knee pain. HISTORY OF PRESENT ILLNESS: The patient is a 61-year-old female who presents for surgical treatment of her right knee. She has got a fairly long history of bilateral knee pain and discomfort, right side greater than left. She has been through extensive conservative treatment including various oral medicines as well as injection treatment. The shots have helped in the past. It became less successful particularly with respect to her right knee. She has pain pretty much all the time. It is increased with walking. Pain is mostly medial. She is ready to have this fixed. She has nighttime pain. She has a limited walking tolerance. PAST MEDICAL HISTORY: 1. Hypertension. 2. Asthma. 3. Prediabetes with a hemoglobin A1c of 5.8. 4. Obesity with BMI of 37. 5. Arthritis. 6. Kidney stones. PAST SURGICAL HISTORY: Include: 1. Tummy tuck x2. 2. D&C/uterine ablation. 3. Removal of a calcified lymph node. 4. Tonsillectomy. ALLERGIES: None. CURRENT MEDICINES: 1. Metformin 500 mg twice a day. 2. Lisinopril 20 mg. 3. Probiotic twice a day. 4. Propranolol XL 60 mg at nighttime. 5. Baby aspirin. 6. Multivitamin. 7. Vitamin D. 8. Asthma inhaler p.r.n. SOCIAL HISTORY: Shows a significant 61-year-old female. She is . She does not smoke. FAMILY HISTORY: Significant for diabetes, heart disease and blood clots. FAMILY HISTORY: Negative for diabetes, heart disease or blood clots. REVIEW OF SYSTEMS: Significant for what she calls prediabetes. Denies any chest pain or shortness of breath. No history of DVT or PE. PHYSICAL EXAMINATION: GENERAL: Reveals a pleasant, middle-aged female. Looks to be in pretty good health. HEENT: Benign. NECK: Supple. No lymphadenopathy. LUNGS: Clear to auscultation. HEART: Regular rate and rhythm. ABDOMEN: Soft, nontender, nondistended. EXTREMITIES: Grossly neurovascularly intact except as follows: Examination of the right knee reveals patient ambulates independently. Fairly neutral alignment to her knee. Moderate soft tissue envelope. Small knee effusion. She is tender over the medial joint line. Range of motion 0-125. No instability. No pain with hip motion. X-RAYS: X-ray of the right knee reviewed. Shows advanced medial compartment arthritis. She has got near complete loss of her medial joint space. She has got osteophytes off the medial femoral condyle and medial tibial plateau. A little bit of calcification to posterolateral side of her knee. ASSESSMENT: A 61-year-old female with right knee medial compartment degenerative joint disease, unresponsive to conservative treatment. She would like to have her right knee fixed. PLAN: We will take her to the operating room and do a right total knee replacement. The risks and benefits of this procedure were explained to the patient including but not limited to DVT, PE, , infection, neurological injury, vascular injury, bleeding problem, pain. The range of motion, stiffness, failure relieve her symptoms, incomplete relief of symptoms, need for further surgery in future, fracture, leg length inequality, nerve palsy, etc. The patient understands and desires. Informed consent was obtained. We did talk about holding her metformin 2 days preop and the lisinopril the morning of surgery. She will take her propranolol the evening before surgery. We will provide insulin sliding scale coverage in the hospital. She is hoping to be discharged to home with [facility] upon recovery.
[2017-05-19] VITALS (8 sets, daily range): BP systolic 98–158; BP diastolic 63–96; PULSE 58–74; TEMP 36.2–37.2; O2SAT 96–100
[~2017-05-19] VITALS: Ht 156.2 cm; Wt 89.0 kg
[~2017-05-19 08:23] MED LIST changes: +ACETAMINOPHEN 500 MG TAB PO SCH; -ASCO100061 PO; +BUPIVACAINE 0.25% 30 ML VIAL ONE; +BUPIVACAINE 0.5 % 5 MG/1 ML PF 10ML VIAL ONE; +BUPIVACAINE LIPOSOME 266 MG, BUPIVACAINE/EPINEPHRINE INJ 50 ML, SODIUM CHLORIDE 0.9% PF... INFIL SCH; +CEFAZOLIN 2000MG IV PUSH 15 ML IV SCH; +FAMOTIDINE 20 MG TAB PO SCH; +GABAPENTIN 600 MG PO SCH; +LACTATED RINGER'S 1000ML 1,000 ML IV SCH; +LACTATED RINGER'S 1000ML 500 ML IV SCH; +LACTATED RINGER'S 1000ML IV SCH; +METOCLOPRAMIDE HCL 10 MG TAB PO SCH; +PROP1TAB PO; +SCOPOLAMINE 1.5 MG TDSY TD SCH; +TRANEXAMIC ACID INJ 1,000 MG x 1 Bag Preop IV SCH
[2017-05-19] MEDS ORDERED: MIDAZOLAM HCL 1 MG/ML 2ML VIAL ONE (08:26)
--- NOTE | 2017-05-19 09:02 | History & Physical Bridge Note ---
H&P Re-Evaluation Bridge Note: I have examined the patient, reviewed the History & Physical and in the interval since the performance of the History & Physical I have noted the following changes of clinical significance: No changes noted
[2017-05-19] MEDS ORDERED: PROPOFOL IV EMULSION 10 MG/ML 20 ML VIAL IV ONE (10:47)
[2017-05-19] MEDS ORDERED: LIDOCAINE HCL 2% 2 ML VIAL (20MG/ML) ONE (10:47)
[2017-05-19] MEDS ORDERED: ONDANSETRON INJ 2 MG/ML 2 ML VIAL ONE (10:47)
[2017-05-19] MEDS ORDERED: KETOROLAC TROMETHAMINE 30 MG/ML VIAL IV. PRN (11:00)
[2017-05-19] MEDS ORDERED: EpHEDrine SULFATE INJ 50 MG/ML AMP IV PRN (11:00)
[2017-05-19] MEDS ORDERED: HYDROmorphone INJ 2 MG/ML SYR/VIAL IV PRN (11:00)
[2017-05-19] MEDS ORDERED: PHENYLEPHRINE 100MCG/ML 5ML SYR IV PRN (11:00)
[2017-05-19] MEDS ORDERED: ATROPINE SULFATE 0.1 MG/ML 5ML SYR IV PRN (11:00)
[2017-05-19] MEDS ORDERED: ONDANSETRON INJ 2 MG/ML 2 ML VIAL IV PRN ×2 (11:00→13:15)
[2017-05-19] MEDS ORDERED: BACITRACIN 50000 UNIT VIAL ONE (11:13)
[2017-05-19] MEDS ORDERED: SODIUM CHLORIDE 0.9% PF 50 ML VIAL ONE (11:13)
[2017-05-19] MEDS ORDERED: BUPIVACAINE LIPOSOME 1/3% 266 MG/20 ML VIAL INFIL ONE (11:13)
[2017-05-19] MEDS ORDERED: EpINEphrine HCL INJ 1 MG/ML 1ML SYRINGE ONE (11:23)
[2017-05-19] MEDS ORDERED: BUPIVACAINE 0.25% 30 ML VIAL ONE (11:23)
--- NOTE | 2017-05-19 13:08 | [facility] Post Operative Brief Note ---
Immediate Operative Summary Operative Date May 19, 2017. Pre-Operative Diagnosis Right Knee Advanced Medial Compartment Degenerative Joint Disease Post-Operative Diagnosis Right Knee Advanced Medial Compartment Degenerative Joint Disease Procedure(s) Performed Right Total Knee Arthroplasty Surgeon Dr. [facility] Surgeon(s) SURESH Barry Estimated Blood Loss 50 ml Findings Consistent with Post-Op Diagnosis Fluids (cc crystalloids) 1100 cc Specimens A. Right Knee Bone and Tissue Drains None Anesthesia Type MAC Spinal Regional Complication(s) none Disposition Accompanied Pt To Recover: no Disposition: Recovery Room / PACU
[2017-05-19] MEDS ORDERED: DiphenhydrAMINE HCL 50 MG/ML VIAL IV PRN (13:15)
[2017-05-19] MEDS ORDERED: MAGNESIUM HYDROXIDE SUSP 30 ML UDC PO PRN (13:15)
[2017-05-19] MEDS ORDERED: GLUCOSE 10 TABS/TUBE PO PRN (13:15)
[2017-05-19] MEDS ORDERED: ALUMINUM/MAGNESIUM/SIMETH (MAALOX MAX) 30 ML UDC PO PRN (13:15)
[2017-05-19] MEDS ORDERED: ALBUTEROL 0.5% NEB SOLN 2.5 MG/0.5 ML VIAL INH PRN (13:15)
[2017-05-19] MEDS ORDERED: GLUCOSE 40% GEL 15 GM TUBE PO PRN (13:15)
[2017-05-19] MEDS ORDERED: DEXTROSE 50% 50 ML SYR IV PRN (13:15)
[2017-05-19] MEDS ORDERED: METOCLOPRAMIDE HCL INJ 5 MG/ML 2 ML VIAL IV PRN (13:15)
[2017-05-19] MEDS ORDERED: ZOLPIDEM TARTRATE 5 MG TAB PO PRN (13:15)
[2017-05-19] MEDS ORDERED: SILVER SULFADIAZINE 1% CR 50 GM JAR EXT PRN (13:15)
[2017-05-19] MEDS ORDERED: BISACODYL 10 MG SUPP PR PRN (13:15)
[2017-05-19] MEDS ORDERED: ALBUTEROL HFA 8 GM INHALER INH PRN (13:15)
[2017-05-19] MEDS ORDERED: CEFAZOLIN IV 2,000 MG in DEXTROSE 5% 50ML 50 ML IV SCH (13:15)
[2017-05-19] MEDS ORDERED: MoRPHine SULFATE 2 MG/ML CARP IV PRN (13:15)
[2017-05-19] MEDS ORDERED: GLUCAGON FOR INJ 1 MG VIAL SQ PRN (13:15)
--- NOTE | 2017-05-19 13:25 | DIAGNOSTIC IMAGING REPORT ---
R KNEE 1 OR 2 VIEWS ROUTINE CLINICAL HISTORY: AP/LATERAL IN PACU RIGHT KNEE postoperative evaluation COMPARISON: None. DISCUSSION: Anatomic alignment post right knee arthroplasty., Expected soft tissue postoperative change. Good contact between prosthetic and underlying bone. IMPRESSION: Anatomic alignment posttotal right knee arthroplasty. The above report was generated using voice recognition software. It may contain grammatical, syntax or spelling errors. Electronically signed by: Jonatan Alves M.D. 05/19/2017 1:24 PM Dictated Date/Time: 05/19/2017 1:23 PM
--- NOTE | 2017-05-19 13:29 | Anesthesiology Progress Note ---
Anesthesia Post Op Note Date & Time May 19, 2017 at 13:28 Vital Signs Pain Intensity: 1 Vital Signs Past 12 Hours Date Time Temp Pulse Resp B/P (MAP) Pulse Ox O2 Delivery O2 Flow Rate FiO2 05/19/17 09:06 37 74 18 158/96 97 Room Air Notes Mental Status: alert / awake / arousable, participated in evaluation Pt Amnestic to Procedure: Yes Nausea / Vomiting: adequately controlled Pain: adequately controlled Airway Patency, RR, SpO2: stable & adequate BP & HR: stable & adequate Hydration State: stable & adequate Anesthetic Complications: no major complications apparent
[2017-05-19] MEDS: SODIUM CHLORIDE 0.9% 1000ML 1,000 ML IV SCH ×2 (14:10→22:32)
[2017-05-19] MEDS: OXYCODONE HCL IR 5 MG TAB (IMMEDIATE RELEASE) PO PRN ×2 (15:14→22:29)
[2017-05-19] MEDS: CHECK SCOPOLAMINE PATCH PLACEMENT SCH ×2 (15:15→23:42)
[2017-05-19] MEDS ORDERED: ACET-24 PO (17:13)
[2017-05-19] MEDS ORDERED: RXC5 PO (17:13)
[2017-05-19] MEDS ORDERED: ASPEC81 PO (17:13)
[2017-05-19] MEDS ORDERED: FRRG PO (17:13)
[2017-05-19] MEDS: INSULIN HUMAN REGULAR SC SCH ×2 (17:15→21:00)
--- NOTE | 2017-05-19 17:15 | Discharge Instructions ---
Discharge Instructions Date of Service May 19, 2017. Admission Reason for Admission: Right Knee Degenerative Joint Disease Discharge Discharge Diagnosis / Problem: Right Knee Replacement Discharge Goals Goal(s): Decrease discomfort, Improve function, Increase independence, Improve disease control, Therapeutic intervention Activity Recommendations Activity Limitations: per Instructions/Follow-up section Weightbearing Status: Right weightbearing . Instructions / Follow-Up Instructions / Follow-Up ACTIVITY RECOMMENDATIONS: Physical Therapy: * You will go to physical therapy three times each week for four to six weeks after your surgery in order to regain your knee range of motion and to retrain your knee to work properly. * It is just as important to make sure you are getting your knee perfectly straight as it is to regain your knee bend. * Taking a pain pill an hour before therapy can help you have a more productive and comfortable therapy session. Home Exercise: * You were shown a series of exercises (heel props, heel slides, etc.) in the hospital. Do these exercises three to four times each day including the exercises you were shown in physical therapy. Walking: * Get up and walk several times each day. For the first four weeks, try not to stand or walk for more than one hour at a time. If you do stand or walk for more than one hour, you will not hurt anything, but your knee and leg will likely swell. * As you feel comfortable, you may change from the walker or crutches to a cane and then to independent walking. MEDICATIONS: New Medicine: * You will likely be taking one or more of these medications: 1. Oxycodone - A quick and shorter-acting pain medication. Take one to two tablets every four to six hours to lessen your pain. 2. Iron Sulfate - Take two times each day for the month after surgery to help you replace the blood lost during surgery. 3. Aspirin - Thins your blood to lessen the chance of forming a blood clot. * The most common side effects of pain medicine and iron are nausea and constipation. If nausea or constipation is too much of a problem or if you have any questions about your new medicines or doses, call [facility] at . We will try to help you manage these issues. VERY IMPORTANT TO READ AND REVIEW" Pain: * The immediate post-operative period after knee replacement surgery is often quite painful. * You are given a prescription for pain medicine. You should take it, as directed, when you need it, especially before physical therapy and before going to bed. Pain that interferes with sleep is very common and can last several months. * You will likely need pain medicine for the first four to six weeks. It will not stop all of the pain. The pain will lessen and as you feel better, you may change to milder pain medicine such as Tylenol. * The most common side effects of pain medicine are nausea and constipation, so don't take more than you need. SPECIAL CARE INSTRUCTIONS: TEDs/Elastic Stockings: * The white elastic stockings help limit swelling and prevent blood clots from forming in your legs. The more you wear them, the more they work. * Wear them for six weeks after knee replacement surgery and four weeks after partial knee replacement. Prevention of Infection: * Take antibiotics one hour before any dental cleaning, dental work, urological procedure, gastrointestinal procedure or any invasive surgery in order to prevent your new joint from getting infected. * You may get the antibiotics from the doctor performing the procedure or you may call our office at before and we will call in a prescription to the pharmacy of your choice. Things to Watch For: * Drainage from the incision site that occurs more than one week after your surgery. * Severely increased knee/leg pain or swelling. * Increased redness at the incision site. * Fever above 102 degrees Fahrenheit. * Unusual chest pain or shortness of breath. * Unusual pain or burning with urination. Call [facility] at with any of the above problems or if you have any questions about your medicines or recovery. FOLLOW UP VISIT: Make an appointment to see your doctor for approximately two weeks after surgery for a progress check and staple removal by calling the office at . Current Hospital Diet Patient's current hospital diet: Diabetes Type 2 Diet Discharge Diet Recommended Diet: Diabetes Type 2 Diet Procedures Procedures Performed: Right Total Knee Arthroplasty Pending Studies Studies pending at discharge: no Laboratory Results Hemoglobin A1c Test 05/15/17 11:44 Range/Units Estimated Average Glucose 120 mg/dl Hemoglobin A1c 5.8 H 4.5-5.6 % Medical Emergencies . Who to Call and When: Medical Emergencies: If at any time you feel your situation is an emergency, please call 100 immediately. . Non-Emergent Contact Non-Emergency issues call your: Surgeon . "Provider Documentation" section prepared by Roberto Larsen. .
--- NOTE | 2017-05-19 17:27 | PROGRESS NOTE ---
DATE: 05/19/2017 SUBJECTIVE: A 61-year-old postop from right knee replacement. She is doing well. Just starting to get some sensation and pain in her knee. No chest pain or shortness of breath. Not feeling dizzy or lightheaded. OBJECTIVE: VITAL SIGNS: Temperature 36.3. Vital signs stable. GENERAL: Reveals a healthy, pleasant middle-aged female. She is sitting up in bed, looks pretty comfortable. LUNGS: Clear to auscultation. HEART: Regular rate and rhythm. ABDOMEN: Soft, nontender, nondistended. EXTREMITIES: Grossly neurovascularly intact except as follows. Examination of the right leg reveals the dressing to be clean, dry and intact. Leg is well aligned. She can dorsiflex and plantarflex her foot appropriately. She is neurologically intact. X-RAYS: X-ray of the right knee from recovery room reviewed. It shows right cemented posterior stabilized total knee arthroplasty. Components looked to be in good position. No signs of problems. ASSESSMENT: A 61-year-old white female postop from a right knee replacement, doing well. Pain is controlled. She is neurologically intact. PLAN: 1. DVT prophylaxis including thigh high TEDs, SCDs, and aspirin twice a day. 2. PT, OT. Weightbear as tolerated. Right total knee protocol. 3. Pain control, doing well with current pain regimen. We will use around the clock Tylenol as well as some Toradol in the hospital. Will discharge her on Tylenol and oxycodone. 4. IV antibiotics x24 hours. 5. Disposition: Plan to discharge to home with some home health once adequately recovered.
[2017-05-19] MEDS: FERROUS GLUCONATE 324 MG TAB PO SCH (17:39)
[2017-05-19] MEDS: KETOROLAC TROMETHAMINE 30 MG/ML VIAL IV. SCH ×2 (17:40→23:42)
[2017-05-19] MEDS ORDERED: TRANEXAMIC ACID INJ 1,000 MG in SODIUM CHLORIDE 0.9% 100ML 100 ML IV SCH (18:00)
--- NOTE | 2017-05-19 18:27 | OPERATIVE REPORT ---
DATE OF OPERATION: 05/19/2017 SURGEON: Dr. Roberto Larsen. REAL ESTATE REP: SURESH Bowers. PREOPERATIVE DIAGNOSIS: Right knee degenerative joint disease. POSTOPERATIVE DIAGNOSIS: Same. PROCEDURE PERFORMED: Right cemented posterior stabilized total knee arthroplasty. COMPLICATIONS: None. ESTIMATED BLOOD LOSS: 50 mL. FLUID REPLACEMENT: 1100 mL crystalloid fluid replacement. ANESTHESIA: Spinal with adductor canal block. DRAINS: None. SPECIMENS: Right knee sent for pathology. TOURNIQUET TIME: 63 minutes at 300 mmHg. ANESTHESIA: Spinal with adductor canal block. OPERATIVE INDICATIONS: The patient is a 61-year-old female who has had a several year history of increasing bilateral knee pain and discomfort, right side a bit worse than the left. She had been through extensive conservative treatments, became less successful over time. It is really limiting her activities and functional capacity and she elected to do a total knee arthroplasty. OPERATIVE FINDINGS: Operative findings were advanced right knee medial compartment DJD with grade 4 bone on bone disease of the medial femoral condyle and medial tibial plateau. She had a moderate size joint effusion. Small osteophytes. OPERATIVE IMPLANTS: Consists of: 1. Biomet Vanguard size 60 right posterior stabilized femoral component. 2. Biomet size 63 tibial tray. 3. A 12 mm posterior stabilized polyethylene insert. 4. A 28 x 8 all poly patella. OPERATIVE PROCEDURE: The patient taken to the operating room, identified and placed on the operating table in supine position. All contact areas were appropriately padded. IV antibiotics were provided by anesthesia team. A spinal anesthetic and adductor canal block had been provided in the holding area. Villavicencio catheter was placed in sterile fashion. Right thigh tourniquet was then placed and the right lower extremity was prepped and draped in sterile fashion. The right leg was elevated and exsanguinated with Esmarch and tourniquet was placed at 300 mmHg. An anterior approach to the right knee was then performed through a longitudinal incision, centered over the patella. Sharp dissection was carried out through the subcutaneous tissues down to the level of the extensor mechanism. Medial parapatellar arthrotomy incision was made and some subperiosteal dissection was carried out medially. The fat pad was resected from beneath the patellar tendon. Lateral patellofemoral ligament was released. The patella was everted and the knee was flexed. The osteophytes were taken off the distal femur. The ACL and PCL were then released from the distal femur and the tibia subluxated anteriorly. The external tibial alignment jig was then placed in the anterior face of the tibia and adjusted 14 mm medially. Proximal tibial cut was made to about 2-3 mm of bone from most deficient aspect of the medial tibial plateau. Tibia was then sized to a size 63. Attention was then drawn to femur. The distal femur was entered with a sharp drill. Intramedullary canal was suctioned. A right 5 degree valgus cutting guide was placed. Distal femoral cutting block was then placed. Distal femoral cut was made to take an additional 3 mm of bone off the distal femur. The femur was then sized to a size 60. We did downsize this just slightly. The AP cutting block was pinned parallel to the epicondylar axis which was 4 degrees of external rotation. The anterior cut, anterior chamfer, posterior cut, posterior chamfer cuts were made. Box cutting guide was placed and adjusted slightly laterally. The box cut was made. The knee was flexed. The remnants of medial and lateral menisci were excised. The osteophytes were taken off the posterior aspect of the femur. A trial femoral component was placed. Tibial tray was pinned in maximum external rotation and drill and stem punch were used to create defect in proximal tibia for the tibial tray. The knee was then trialed and 5 mm insert fit most appropriately. She did have extensive hyperextend preoperatively and we tried to take her knee up a little bit in extension. Attention was then drawn to patella. Patella was cleaned of all soft tissues. Patella thickness measured 19 mm in thickness and was cut down to 13. It was sized to a size 28 patella. Lug holes were drilled for a 28 patella. Lateral osteophyte was removed. Patella button was placed. Knee was taken through range of motion and the patella tracked nicely with no thumbs test. Attention was then drawn toward placement of permanent components. All trial components were removed. A bone plug was placed in the distal femur to limit blood loss. A double batch of Palacos G cement was mixed. A right size 60 posterior stabilized femoral component, size 63 tibial tray, a 12 mm posterior stabilized polyethylene insert, and a 28 x 8 all poly patella then cemented in place. Knee was brought out in full extension until the cement had hardened. A final cement check was then performed. Pericapsular tissues were injected with a total of 100 mL of a combination of 20 mL of Exparel, 30 mL of normal saline, 50 mL of 0.25% Marcaine with epinephrine. The patient did receive 1 gram of tranexamic acid. The tourniquet was then let down for a tourniquet time of 53 minutes. Hemostasis was assured with use of electrocautery. The wound was once again irrigated. The extensor mechanism was then closed combination of #1 PDS suture and #1 Vicryl suture in a [id number] fashion. Extensor mechanism was checked and found to be intact. Subcutaneous tissues were then closed with #2 Dexon suture in a buried interrupted fashion. Skin was closed skin zackery. Leg was then cleaned, dried and a sterile dressing of Xeroform, 4 x 4, sterile cast padding and Michael bandage were applied. The patient then transferred to the recovery room in stable condition. The patient tolerated the procedure well with will no complication. All needle, sponge counts were correct at the end of the operation. I attest to the content of the Intraoperative Record and any orders documented therein. Any exception s are noted below.
[2017-05-19] MEDS: CEFAZOLIN IV 2,000 MG in SYRINGE 0 ML IV SCH (20:30)
[2017-05-19] MEDS: DOCUSATE SODIUM 100 MG CAP PO SCH (20:31)
[2017-05-19] MEDS: LISINOPRIL 10 MG TAB PO SCH (20:31)
[2017-05-19] MEDS: TAPENTADOL ER 50 MG TABCR PO SCH (20:31)
[2017-05-19] MEDS: ASPIRIN 81 MG ECTAB PO SCH (20:32)
[2017-05-19] MEDS: SENNA 8.6 MG TAB PO SCH (20:32)
[2017-05-19] MEDS: PROPRANOLOL HCL 20 MG TAB PO SCH (20:33)
[2017-05-19] MEDS: ACETAMINOPHEN 500 MG TAB PO SCH (22:28)
[2017-05-20 04:00] VITALS: BP 124/71; PULSE 77; TEMP 37.1; O2SAT 96
[2017-05-20] MEDS: CEFAZOLIN IV 2,000 MG in SYRINGE 0 ML IV SCH (05:10)
[2017-05-20 06:04] LABS: HEMATOCRIT 32.5 % (37-47); HEMOGLOBIN 10.9 g/dL (12.0-16.0); MEAN CELL VOLUME 87.1 fL (80-100); MEAN CORPUSCULAR HEMOGLOBIN 29.2 pg (25-34); MEAN CORPUSCULAR HGB CONC 33.5 g/dl (32-36); MEAN PLATELET VOLUME 9.3 fL (7.4-10.4); PLATELET COUNT 182 K/uL (130-400); RED CELL DISTRIBUTION WIDTH SD 41.9 fL (36.4-46.3); WHITE BLOOD COUNT 7.64 K/uL (4.8-10.8)
[2017-05-20] MEDS: KETOROLAC TROMETHAMINE 30 MG/ML VIAL IV. SCH ×3 (06:24→17:59)
[2017-05-20] MEDS: SODIUM CHLORIDE 0.9% 1000ML 1,000 ML IV SCH (06:25)
[2017-05-20] MEDS: ACETAMINOPHEN 500 MG TAB PO SCH ×3 (06:25→22:00)
[2017-05-20 06:46] LABS: CALCIUM 7.9 mg/dl (8.5-10.1); CREATININE 1.17 mg/dl (0.60-1.20); POTASSIUM 4.1 mmol/L (3.5-5.1)
[2017-05-20 07:50] VITALS: BP 120/83; PULSE 77; TEMP 36.7; O2SAT 98
[2017-05-20] MEDS: CHECK SCOPOLAMINE PATCH PLACEMENT SCH ×2 (08:13→16:02)
[2017-05-20] MEDS ORDERED: MULTIVITAMIN TAB PO SCH (09:00)
[2017-05-20] MEDS: ASPIRIN 81 MG ECTAB PO SCH ×2 (09:06→21:58)
[2017-05-20] MEDS: CHOLECALCIFEROL 1000 INTER.UNIT TAB PO SCH (09:06)
[2017-05-20] MEDS: MULTIVITAMIN TAB PO SCH (09:06)
[2017-05-20] MEDS: LACTOBACILLUS ACIDOPHILUS (FLORANEX) TAB PO SCH (09:06)
[2017-05-20] MEDS: FERROUS GLUCONATE 324 MG TAB PO SCH ×3 (09:06→17:59)
[2017-05-20] MEDS: PANTOprazole SOD 40 MG TAB PO SCH (09:06)
[2017-05-20] MEDS: DOCUSATE SODIUM 100 MG CAP PO SCH ×2 (09:06→21:57)
[2017-05-20] MEDS: INSULIN HUMAN REGULAR SC SCH ×4 (09:11→22:11)
[2017-05-20] MEDS: TAPENTADOL ER 50 MG TABCR PO SCH ×2 (09:12→22:00)
[2017-05-20] MEDS: OXYCODONE HCL IR 5 MG TAB (IMMEDIATE RELEASE) PO PRN ×2 (09:12→12:47)
--- NOTE | 2017-05-20 09:16 | PROGRESS NOTE ---
DATE: 05/20/2017 CHIEF COMPLAINT: Status post right total knee arthroplasty postop day #1. PROGRESS: Eli was seen and examined at bedside today. Overall, she is doing very well. She has little to no pain in her knee. She has already been up and ambulating. She is very happy with her progress and has no complaints. PHYSICAL EXAMINATION: RIGHT KNEE: She is lying with her leg out in full extension. She has active dorsiflexion, plantarflexion of her right ankle. Sensation is intact throughout. VITAL SIGNS: All stable on room air. GENERAL: She is voiding on her own and her Villavicencio catheter has already been removed. LABORATORY DATA: She has an H&H today of 10.9 and 32.5. Her glucose is 117. IMPRESSION: Status post right total knee arthroplasty postop day #1. PLAN: At this point, she is doing well and happy with her progress. She has very little pain in the knee. She will be up and ambulating today with physical therapy. We will continue with aspirin for DVT prophylaxis. I will see her tomorrow morning if everything looks good, we will discharge her to home.
[2017-05-20 11:10] VITALS: BP 138/81; PULSE 74; TEMP 37; O2SAT 95
[2017-05-20 15:19] VITALS: BP 124/78; PULSE 80; TEMP 37.1; O2SAT 93
[2017-05-20 21:52] VITALS: BP 156/89; PULSE 72; O2SAT 97
[2017-05-20] MEDS: PROPRANOLOL HCL 20 MG TAB PO SCH (21:58)
[2017-05-20] MEDS: LISINOPRIL 10 MG TAB PO SCH (21:59)
[2017-05-20] MEDS: SENNA 8.6 MG TAB PO SCH (22:00)
[2017-05-20 22:50] VITALS: BP 146/82; PULSE 72; TEMP 37.3; O2SAT 93
[2017-05-21 00:28] VITALS: TEMP 37.3
[2017-05-21] MEDS: KETOROLAC TROMETHAMINE 30 MG/ML VIAL IV. SCH ×2 (00:30→06:31)
[2017-05-21] MEDS: OXYCODONE HCL IR 5 MG TAB (IMMEDIATE RELEASE) PO PRN ×2 (00:37→07:42)
[2017-05-21] MEDS: ACETAMINOPHEN 500 MG TAB PO SCH (06:32)
[2017-05-21 06:58] VITALS: BP 147/86; PULSE 71; TEMP 36.8; O2SAT 95
[2017-05-21] MEDS: CHECK SCOPOLAMINE PATCH PLACEMENT SCH ×2 (07:36)
[2017-05-21] MEDS: INSULIN HUMAN REGULAR SC SCH (07:37)
[2017-05-21] MEDS: DOCUSATE SODIUM 100 MG CAP PO SCH (07:38)
[2017-05-21] MEDS: FERROUS GLUCONATE 324 MG TAB PO SCH (07:38)
[2017-05-21] MEDS: CHOLECALCIFEROL 1000 INTER.UNIT TAB PO SCH (07:38)
[2017-05-21] MEDS: PANTOprazole SOD 40 MG TAB PO SCH (07:39)
[2017-05-21] MEDS: MULTIVITAMIN TAB PO SCH (07:39)
[2017-05-21] MEDS: LACTOBACILLUS ACIDOPHILUS (FLORANEX) TAB PO SCH (07:39)
[2017-05-21] MEDS: TAPENTADOL ER 50 MG TABCR PO SCH (07:41)
[2017-05-21] MEDS: ASPIRIN 81 MG ECTAB PO SCH (08:00)
[2017-05-21 09:32] VITALS: BP 147/86; PULSE 71; TEMP 36.8; O2SAT 95
--- NOTE | 2017-05-21 09:41 | DIAGNOSTIC IMAGING REPORT ---
ULTRASOUND RIGHT LOWER EXTREMITY VENOUS CLINICAL HISTORY: Right calf pain. COMPARISON STUDY: No priors. TECHNIQUE: Real-time, grayscale, and color Doppler sonography of the deep veins of the right lower extremity was performed from the inguinal crease to the calf. Compression and augmentation were utilized. FINDINGS: There is no sonographic evidence of deep venous thrombosis identified in the right lower extremity. The common femoral, superficial femoral, and popliteal veins are patent and normally compressible. The greater saphenous vein and the profunda femoris vein at the junction with the common femoral vein are clear. The visualized calf veins are patent. A complex popliteal cyst measures 3.8 x 1.1 x 2.1 cm. IMPRESSION: 1. There is no sonographic evidence of deep venous thrombosis identified in the right lower extremity. 2. Small complex popliteal cyst. Electronically signed by: Real Flores M.D. 05/21/2017 9:39 AM Dictated Date/Time: 05/21/2017 9:39 AM
--- NOTE | 2017-05-21 10:47 | PROGRESS NOTE ---
DATE: 05/21/2017 CHIEF COMPLAINT: Status post right total knee arthroplasty postop day #2. PROGRESS: Eli was seen and examined at bedside today. Overall, she is doing fairly well. She has a lot of soreness in her right calf. She was up and ambulating well yesterday with physical therapy. She has no other complaints. PHYSICAL EXAMINATION: Her knees out in full extension. Her incision is clean and dry and the dressing has been changed. She has active dorsiflexion and plantarflexion of her right ankle. She has a lot of tenderness to palpation in her right calf. VITAL SIGNS: All stable on room air. She is voiding on her own and had a bowel movement. IMAGING: Ultrasound of her right lower extremity was negative for DVT. IMPRESSION: Status post right total knee arthroplasty postop day #2. PLAN: The ultrasound of her right lower extremity was negative today. She is doing well with physical therapy and her pain is relatively well controlled. She can be discharged to home later this morning.
== END 2017-05-21 10:55 | disposition home health service (06) | DRG 470 ==
LOC: C.ACU 08:23 → C.3E 08:30 → ENRESERV 13:32
PROVIDERS: ADMIT Orthopaedic Surgery Sports Medicine; ATTEND Orthopaedic Surgery Sports Medicine
PROC: 0SRC0J9 Replacement of Right Knee Joint with Synthetic Substitute, Cemented, Open Approach (ICD-10-PCS; principal; 2017-05-19 11:00)
DX: M17.11 Unilateral primary osteoarthritis, right knee (principal); M79.661 Pain in right lower leg; I10 Essential (primary) hypertension; R73.03 Prediabetes; J45.909 Unspecified asthma, uncomplicated; E66.9 Obesity, unspecified; Z68.37 Body mass index [BMI] 37.0-37.9, adult; Z87.442 Personal history of urinary calculi; Z79.82 Long term (current) use of aspirin; Z79.84 Long term (current) use of oral hypoglycemic drugs; Z79.899 Other long term (current) drug therapy; Z98.890 Other specified postprocedural states

== ENCOUNTER 2017-05-26 19:31 | Emergency (ER) | payer OTHER ==
[~2017-05-26] VITALS: Ht 154.9 cm; Wt 87.9 kg
[~2017-05-26 19:31] MED LIST changes: +ACET-24 PO; -ACETAMINOPHEN 500 MG TAB PO SCH; +ASPEC81 PO; -ASPI81TA28 PO; -BUPIVACAINE 0.25% 30 ML VIAL ONE; -BUPIVACAINE 0.5 % 5 MG/1 ML PF 10ML VIAL ONE; -BUPIVACAINE LIPOSOME 266 MG, BUPIVACAINE/EPINEPHRINE INJ 50 ML, SODIUM CHLORIDE 0.9% PF... INFIL SCH; -CEFAZOLIN 2000MG IV PUSH 15 ML IV SCH; -FAMOTIDINE 20 MG TAB PO SCH; +FRRG PO; -GABAPENTIN 600 MG PO SCH; -LACTATED RINGER'S 1000ML 1,000 ML IV SCH; -LACTATED RINGER'S 1000ML 500 ML IV SCH; -LACTATED RINGER'S 1000ML IV SCH; -METOCLOPRAMIDE HCL 10 MG TAB PO SCH; +RXC5 PO; -SCOPOLAMINE 1.5 MG TDSY TD SCH; -TRANEXAMIC ACID INJ 1,000 MG x 1 Bag Preop IV SCH
[2017-05-26 19:33] VITALS: TEMP 36.7; Ht 154.9 cm; Wt 87.9 kg
[2017-05-26] MEDS ORDERED: SODIUM CHLORIDE 0.9% 1000ML 1,000 ML IV STA (19:46)
[2017-05-26] MEDS ORDERED: PROMETHAZINE HCL INJ 12.5 MG in SODIUM CHLORIDE 0.9% 50ML 50 ML IV STA (19:48)
[2017-05-26] MEDS ORDERED: LISINOPRIL 5 MG TAB PO ONE (20:00)
--- NOTE | 2017-05-26 20:12 | DIAGNOSTIC IMAGING REPORT ---
CHEST ONE VIEW PORTABLE CLINICAL HISTORY: Extreme hypertension COMPARISON STUDY: May 15, 2017 FINDINGS: The cardiac and mediastinal contours are normal. There is no evidence of focal pulmonary consolidation. There is no evidence of failure. No pleural effusions are visualized.[ IMPRESSION: No active disease in the chest. Electronically signed by: Adarsh Akbar M.D. 05/26/2017 8:10 PM Dictated Date/Time: 05/26/2017 8:10 PM
[2017-05-26 20:35] LABS: BASO % 0.2 %; BASO ABS # 0.02 K/uL (0-0.2); EOS % 4.5 %; EOS ABS # 0.41 K/uL (0-0.5); HEMATOCRIT 34.8 % (37-47); IG# 0.02 K/uL (0.00-0.02); LYMPH % 20.9 %; LYMPH ABS # 1.91 K/uL (1.2-3.4); MEAN CELL VOLUME 84.9 fL (80-100); MEAN CORPUSCULAR HEMOGLOBIN 29.3 pg (25-34); MEAN CORPUSCULAR HGB CONC 34.5 g/dl (32-36); MEAN PLATELET VOLUME 8.7 fL (7.4-10.4); MONO % 10.3 %; MONO ABS # 0.94 K/uL (0.11-0.59); NEUT % 63.9 %; NEUT ABS # 5.86 K/uL (1.4-6.5); PLATELET COUNT 369 K/uL (130-400); RED CELL DISTRIBUTION WIDTH SD 39.4 fL (36.4-46.3); WHITE BLOOD COUNT 9.16 K/uL (4.8-10.8)
--- NOTE | 2017-05-26 20:46 | DIAGNOSTIC IMAGING REPORT ---
CT HEAD WITHOUT CONTRAST (CT) CLINICAL HISTORY: Hypertension. Lightheadedness. COMPARISON STUDY: No previous studies for comparison. TECHNIQUE: Axial CT of the brain is performed from the vertex to the skull base. IV contrast was not administered for this examination. A dose lowering technique was utilized adhering to the principles of ALARA. CT DOSE: 601.98 mGy.cm FINDINGS: No intra or extra-axial mass lesions are visualized. There is no CT evidence of acute cortical infarction. There is no evidence of midline shift. There is no acute hemorrhage. No calvarial fractures are visualized. There are minimal white matter hypodensities likely on a small vessel basis. There is no evidence of pathologic ventricular dilatation. There is no evidence of acute sinusitis IMPRESSION: No acute intracranial findings Electronically signed by: Adarsh Akbar M.D. 05/26/2017 8:45 PM Dictated Date/Time: 05/26/2017 8:44 PM
[2017-05-26 20:56] LABS: BLOOD UREA NITROGEN 18 mg/dl (7-18); CALCIUM 9.8 mg/dl (8.5-10.1); CARBON DIOXIDE 32 mmol/L (21-32); CREATININE 1.02 mg/dl (0.60-1.20); GLUCOSE 116 mg/dl (70-99); SODIUM 138 mmol/L (136-145)
[2017-05-26] MEDS ORDERED: ONDANSETRON INJ 2 MG/ML 2 ML VIAL IV STA (21:07)
[2017-05-26] MEDS ORDERED: MoRPHine SULFATE 4 MG/ML 1 ML CARP\\VIAL IV STA (21:07)
[2017-05-26] MEDS ORDERED: OPTIRAY 320 IV PRN (21:15)
--- NOTE | 2017-05-26 21:46 | DIAGNOSTIC IMAGING REPORT ---
CT ANGIOGRAM OF THE CHEST CLINICAL HISTORY: Hypertension. Shortness of breath. Postop knee surgery. Evaluate for pulmonary embolus. COMPARISON STUDY: Chest x-ray dated 05/26/2017 TECHNIQUE: Following the IV administration of 79 mL of Optiray-320, CT angiogram of the thorax was performed from the thoracic inlet to the lung bases utilizing the pulmonary embolus protocol. Images are reviewed in the axial, sagittal, and coronal planes. IV contrast was administered without complication. MIP imaging was performed. A dose lowering technique was utilized adhering to the principles of ALARA. CT DOSE: 294.35 mGy.cm FINDINGS: There is a 6 mm left lobe thyroid nodule There is an 18 mm right paratracheal soft tissue lesion. Diagnostic considerations include a venous varix or enlarged lymph node. If further evaluation is desired, this can be evaluated with an MRI of the thorax. There was no evidence of thoracic aortic dilatation. There were no pulmonary artery filling defects to indicate acute pulmonary embolism. . No pleural effusions are visualized. There was no evidence of focal pulmonary consolidation. There are mild dependent atelectatic changes. There is no focal pulmonary consolidation. IMPRESSION: 1. No evidence of acute pulmonary embolism 2. 18 mm right paratracheal structure. While likely representing a venous varix, an enlarged lymph node could appear similar. If further evaluation is desired, this could be evaluated with an MRI of the thorax. Electronically signed by: Adarsh Akbar M.D. 05/26/2017 9:45 PM Dictated Date/Time: 05/26/2017 9:34 PM
--- NOTE | 2017-05-26 21:59 | EMERGENCY ROOM VISIT NOTE ---
History Report prepared by Portillo: Isaac Narayanan Under the Supervision of: Dr. Ryan Zelaya D.O. First contact with patient: 19:38 Chief Complaint: HYPERTENSION Stated Complaint: VERY HIGH BLOOD PRESSURE History of Present Illness The patient is a 61 year old female who presents to the Emergency Room with complaints of hypertensive blood pressure that she first noticed earlier today, several hours ago. The patient states that she was discharged from the hospital on Monday 5 days ago after a surgery on the right knee. Since discharge she has been checking her blood pressure frequently as she has a history of hypertension. Today she noticed systolic pressures up into the 180's per the . The patient is on 10 mg of Lisinopril daily, and took her dosage for tonight early this afternoon at 1415, 5 hours ago. The patient also complains of becoming light headed and sweaty today. Lightheadedness is present with changing positions. When she rests she does not get it. If she stands still after getting up she notes the symptoms resolve after a short amount of time. Nothing else makes these symptoms better or worse. She does have minimal right knee pain and this comes and goes as her narcotics wear off. She has been unable to take oxycodone as it makes her extremely nauseous. She has been taking Ultram with some relief of her knee pain. She denies headache, change in vision, fevers, chest pain, shortness of breath, nausea, vomiting, diarrhea, pain with urination, and melena. Source of History: patient Onset: Several hours ago Position: chest (Cardiovascular) Symptom Intensity: 180s systolically Quality: other (HTN) Associated Symptoms: + diaphoresis, No chest pain, No SOB Review of Systems See HPI for pertinent positives & negatives. A total of 10 systems reviewed and were otherwise negative. Past Medical & Surgical Medical Problems: (1) Asthma, Unspecified (2) Chest pain (3) Diab Donna Wo Compl, Type Ii Or Unspec Type, Not Uncntrld (4) Hypertension Nos (5) Right Knee DJD Family History Diabetes mellitus FHx: cancer FHx: gallbladder disease Social History Smoking Status: Never Smoker Drug Use: none Marital Status: Housing Status: lives with family Occupation Status: employed Current/Historical Medications Scheduled Acetaminophen (Sb Non-Aspirin Extra Stre), 1,000 MG PO Q8 Aspirin (Aspirin EC Low Dose), 81 MG PO BID Cholecalciferol (Vitamin D-3), 2 TABS PO QAM Ferrous Gluconate (Ferrous Gluconate), 324 MG PO BIDM Lisinopril (Zestril), 10 MG PO HS Metformin Hcl (Glucophage), 500 MG PO BIDM Multivitamin (Multivitamin), 1 TAB PO QAM Probiotic Product (Probiotic), 1 CAP PO QAM Propranolol (Inderal), 60 MG PO HS Scheduled PRN Albuterol Hfa (Ventolin Hfa), 2-4 PUFFS INH Q6H PRN for SOB/Wheezing Albuterol Sulf (Albuterol Sulfate), 2.5 MG NEB Q6H PRN for SOB/Wheezing Oxycodone HCl (Oxycodone HCl), 5-10 MG PO Q6H PRN for Pain Allergies Coded Allergies: POLLEN (Verified Allergy, Unknown, asthma flares up, 05/19/17) Physical Exam Vital Signs Date Time Temp Pulse Resp B/P (MAP) Pulse Ox O2 Delivery O2 Flow Rate FiO2 05/26/17 21:03 84 191/89 97 05/26/17 20:22 84 05/26/17 20:07 76 180/104 96 05/26/17 19:33 36.7 98 18 189/104 93 Room Air Physical Exam GENERAL: Sitting up in bed, alert, well appearing, well nourished, no distress, non-toxic. Talking in full sentences. EYE EXAM: normal conjunctiva. PERRL and EOM's grossly intact. OROPHARYNX: no exudate, no erythema, lips, buccal mucosa, and tongue normal and mucous membranes are moist NECK: supple, no nuchal rigidity, no adenopathy, non-tender LUNGS: Clear to auscultation. Normal chest wall mechanics. Talking in full sentences. HEART: no murmurs, S1 normal and S2 normal ABDOMEN: abdomen soft, non-tender, normo-active bowel sounds, no masses, no rebound or guarding. BACK: Back is symmetrical on inspection and there is no deformity, no midline tenderness, no CVA tenderness. SKIN: no rashes and no bruising UPPER EXTREMITIES: upper extremities are grossly normal. LOWER EXTREMITIES: No pitting edema. There is a clean incision that is dry and intact with zackery in place over the right knee. NEURO EXAM: Normal sensorium, cranial nerves II-XII intact, normal speech, no weakness of arms, no weakness of legs. No drift. Finger to nose intact. Gross sensation intact. Medical Decision & Procedures Laboratory Results 05/26/17 20:15 Red Blood Count 4.10, Mean Corpuscular Volume 84.9, Mean Corpuscular Hemoglobin 29.3, Mean Corpuscular Hemoglobin Concent 34.5, Mean Platelet Volume 8.7, Neutrophils (%) (Auto) 63.9, Lymphocytes (%) (Auto) 20.9, Monocytes (%) (Auto) 10.3, Eosinophils (%) (Auto) 4.5, Basophils (%) (Auto) 0.2, Neutrophils # (Auto ) 5.86, Lymphocytes # (Auto) 1.91, Monocytes # (Auto) 0.94, Eosinophils # (Auto ) 0.41, Basophils # (Auto) 0.02 05/26/17 20:15 Test 05/26/17 20:15 White Blood Count 9.16 K/uL (4.8-10.8) Red Blood Count 4.10 M/uL (4.2-5.4) Hemoglobin 12.0 g/dL (12.0-16.0) Hematocrit 34.8 % (37-47) Mean Corpuscular Volume 84.9 fL (80-100) Mean Corpuscular Hemoglobin 29.3 pg (25-34) Mean Corpuscular Hemoglobin Concent 34.5 g/dl (32-36) Platelet Count 369 K/uL (130-400) Mean Platelet Volume 8.7 fL (7.4-10.4) Neutrophils (%) (Auto) 63.9 % Lymphocytes (%) (Auto) 20.9 % Monocytes (%) (Auto) 10.3 % Eosinophils (%) (Auto) 4.5 % Basophils (%) (Auto) 0.2 % Neutrophils # (Auto) 5.86 K/uL (1.4-6.5) Lymphocytes # (Auto) 1.91 K/uL (1.2-3.4) Monocytes # (Auto) 0.94 K/uL (0.11-0.59) Eosinophils # (Auto) 0.41 K/uL (0-0.5) Basophils # (Auto) 0.02 K/uL (0-0.2) RDW Standard Deviation 39.4 fL (36.4-46.3) RDW Coefficient of Variation 13.0 % (11.5-14.5) Immature Granulocyte % (Auto) 0.2 % Immature Granulocyte # (Auto) 0.02 K/uL (0.00-0.02) D-Dimer 4570 ug/L FEU (0-500) Anion Gap 4.0 mmol/L (3-11) Est Creatinine Clear Calc Drug Dose 58.4 ml/min Estimated GFR () 68.8 Estimated GFR (Non- 59.3 BUN/Creatinine Ratio 17.3 (10-20) Calcium Level 9.8 mg/dl (8.5-10.1) Troponin I < 0.015 ng/ml (0-0.045) Laboratory results per my review. Medications Administered Medications (Trade) Dose Ordered Sig/Kusum Route Start Time Stop Time Status Last Admin Dose Admin Sodium Chloride 1,000 ml @ 999 mls/hr Q1H1M STAT IV 05/26/17 19:46 05/26/17 20:46 DC 05/26/17 20:20 999 MLS/HR Lisinopril (Zestril Tab) 10 mg NOW ONCE PO 05/26/17 20:00 05/26/17 20:01 DC 05/26/17 20:20 10 MG Promethazine HCl 12.5 mg/Sodium Chloride 50.5 ml @ 204 mls/hr NOW STAT IV 05/26/17 19:48 05/26/17 20:02 DC 05/26/17 20:20 204 MLS/HR Morphine Sulfate (MoRPHine SULFATE INJ) 4 mg NOW STAT IV 05/26/17 21:07 05/26/17 21:08 DC 05/26/17 21:12 4 MG Ondansetron HCl (Zofran Inj) 4 mg NOW STAT IV 05/26/17 21:07 05/26/17 21:08 DC 05/26/17 21:[address] ANGIOGRAM OF THE CHEST CLINICAL HISTORY: Hypertension. Shortness of breath. Postop knee surgery. Evaluate for pulmonary embolus. COMPARISON STUDY: Chest x-ray dated 05/26/2017 TECHNIQUE: Following the IV administration of 79 mL of Optiray-320, CT angiogram of the thorax was performed from the thoracic inlet to the lung bases utilizing the pulmonary embolus protocol. Images are reviewed in the axial, sagittal, and coronal planes. IV contrast was administered without complication. MIP imaging was performed. A dose lowering technique was utilized adhering to the principles of ALARA. CT DOSE: 294.35 mGy.cm FINDINGS: There is a 6 mm left lobe thyroid nodule There is an 18 mm right paratracheal soft tissue lesion. Diagnostic considerations include a venous varix or enlarged lymph node. If further evaluation is desired, this can be evaluated with an MRI of the thorax. There was no evidence of thoracic aortic dilatation. There were no pulmonary artery filling defects to indicate acute pulmonary embolism. . No pleural effusions are visualized. There was no evidence of focal pulmonary consolidation. There are mild dependent atelectatic changes. There is no focal pulmonary consolidation. IMPRESSION: 1. No evidence of acute pulmonary embolism 2. 18 mm right paratracheal structure. While likely representing a venous varix, an enlarged lymph node could appear similar. If further evaluation is desired, this could be evaluated with an MRI of the thorax. ECG Per My Interpretation Indication: diaphoresis, other (Dizziness) Rate (beats per minute): 73 Rhythm: sinus rhythm Findings: other (Poor baseline for interpretation in the inferior leads, Normal axis) Comparison ECG Date: 05/15/2017 Change: no significant change Change: Repeat EKG was obtained a 2147. Sinus rhythm rate of 68 normal axis normal intervals no acute change from previous. ED Course ED COURSE: Vital signs were reviewed and showed hypertensive The patients medical record was reviewed The above diagnostic studies were performed and reviewed. ED treatments and interventions as stated above. 1939: The patient was evaluated in room C2. A complete history and physical examination was performed. 1945: Ordered Sodium Chloride 1000 mL @ 999 mL/hr IV. 1947: Ordered Promethazine HCl 50.5 mL @ 204 mL/hr IV. 1999: Ordered Lisinopril 10 mg PO. 2103: I checked on the patient at this time. She is having significant pain in the right knee. 2106: Ordered Morphine Sulfate 4 mg IV, Zofran 4 mg IV. 2145: Upon reevaluation, the patient is resting in bed.I discussed my findings with the patient and she understands and agrees with the treatment plan. Based on the patients age, coexisting illnesses, exam and lab findings the decision to treat as an outpatient was made. The patient remained stable while under my care. The patient appeared well at the time of discharge. Medical Decision Differenital diagnosis includes etiologies such as benign positional vertigo, dehydration, hypovolemia, anemia, tumor, infection, hypoglycemia, electrolyte abnormalities, cardiac sources, intracerebral event, toxicologic, neurologic, as well as others were entertained. Patient is a 61-year-old female who presents the ER for lightheadedness which is present with changing of positions associated with hypertension. Blood pressure at home was in the 180s-190s. Upon presentation she notes she is also having right knee pain. She notes her Ultram is wearing off. 5 days ago she had surgery for right knee replacement. Has been having trouble with narcotics and consequently was downgraded and switched to Ultram as she has become very nauseous and sick on her narcotics. Patient was given her extra dose of lisinopril which her PCP prescribed. CBC along with BMP and troponin were negative. EKG was unchanged from previous except lead III which showed a questionable Q waves although I favor this is secondary to placement. She denies any chest pain or shortness of breath. Repeat EKG was obtained several hours later and was unchanged. D-dimer was elevated as expected but performed as she was slightly tachycardic and pulse ox was only 92% upon arrival. With these findings and the recent surgery, CT PE was performed which was negative with exception of a large lymph node versus venous structure. Patient was updated in regards to this. Will follow up with PCP. Patient was given IV morphine and fluids. Morphine was for her right knee pain. Blood pressures trended down to 150s. She felt significantly better in regards to her knee pain. With the fluid she did feel less lightheaded. I do not feel any of this is ischemic. I do favor most of it is driven by her knee pain which is difficult to control secondary to the nausea from the narcotics. She was discharged follow-up with PCP as an outpatient. Discussed with Pt concerning signs and symptoms to watch out for. Pt was instructed to follow up with their PCP and discussed with the patient their option to return to the ED at anytime for persistent or worsening symptoms. The appropriate anticipatory guidance and out-patient management, including indications for return to the emergency department, were explained at length to the patient and understood. Medication Reconcilliation Current Medication List: was personally reviewed by me Blood Pressure Screening Patient's blood pressure: Elevated blood pressure Blood pressure disposition: Referred to PCP Impression Primary Impression: HTN (hypertension) Additional Impressions: Knee pain Lightheaded Scribe Attestation The scribe's documentation has been prepared under my direction and personally reviewed by me in its entirety. I confirm that the note above accurately reflects all work, treatment, procedures, and medical decision making performed by me. Departure Information Dispostion Home / Self-Care Referrals Gary Black M.D. (PCP) Forms HOME CARE DOCUMENTATION FORM, IMPORTANT VISIT INFORMATION, WORK / SCHOOL INSTRUCTIONS Patient Instructions My [facility] Additional Instructions Please follow up with your primary care doctor with in the next 24 hours. Any worsening of your symptoms, please return to the ED immediately. This includes any fevers greater than 100.4, worsening pain, chest pain, shortness breath, persistent nausea, vomiting, unable to eat or drink, or any other concerning signs or symptoms from your standpoint. You were given medications during this visit that will inhibit your ability to drive, operate machinery and work. Please do NOT drive, operate machinery, drink alcohol or work for the next 12hrs. You were found to have a blood pressure greater than 120 systolic over 90 diastolic. Due to the new Medicare guidelines, we are now recommending that you follow up with your primary care doctor in regards to this elevated blood pressure. Problem Qualifiers Primary Impression: HTN (hypertension) Hypertension type: unspecified Qualified Codes: I10 - Essential (primary) hypertension Additional Impressions: Knee pain Chronicity: acute Laterality: right Qualified Codes: M25.561 - Pain in right knee
[2017-05-26 22:12] VITALS: BP 154/92; PULSE 78; O2SAT 98
== END 2017-05-26 22:13 | disposition home or self-care (01) ==
LOC: C.EDB 19:32 → C.EDC 22:13
DX: I10 Essential (primary) hypertension (principal); G89.18 Other acute postprocedural pain; M25.561 Pain in right knee; R42 Dizziness and giddiness; J45.909 Unspecified asthma, uncomplicated; E11.9 Type 2 diabetes mellitus without complications; Z79.82 Long term (current) use of aspirin; Z79.84 Long term (current) use of oral hypoglycemic drugs; Z83.3 Family history of diabetes mellitus

== ENCOUNTER → 2017-10-05 | Outpatient (CLI) | payer OTHER ==
[~2017-10-05] MED LIST changes: -ASPEC81 PO; +ASPI-320 PO
[2017-10-05 12:46] LABS: BASO % 0.3 %; BASO ABS # 0.02 K/uL (0-0.2); EOS % 2.5 %; EOS ABS # 0.17 K/uL (0-0.5); HEMATOCRIT 40.8 % (37-47); HEMOGLOBIN 13.7 g/dL (12.0-16.0); IG# 0.01 K/uL (0.00-0.02); LYMPH % 23.5 %; LYMPH ABS # 1.57 K/uL (1.2-3.4); MEAN CELL VOLUME 85.5 fL (80-100); MEAN CORPUSCULAR HEMOGLOBIN 28.7 pg (25-34); MEAN CORPUSCULAR HGB CONC 33.6 g/dl (32-36); MEAN PLATELET VOLUME 10.1 fL (7.4-10.4); MONO % 11.2 %; MONO ABS # 0.75 K/uL (0.11-0.59); NEUT % 62.4 %; NEUT ABS # 4.17 K/uL (1.4-6.5); PLATELET COUNT 262 K/uL (130-400); RED CELL DISTRIBUTION WIDTH CV 13.3 % (11.5-14.5); RED CELL DISTRIBUTION WIDTH SD 41.7 fL (36.4-46.3); WHITE BLOOD COUNT 6.69 K/uL (4.8-10.8)
[2017-10-05 13:13] LABS: HEMOGLOBIN A1C 6.2 % (4.5-5.6)
[2017-10-05 13:36] LABS: ALKALINE PHOSPHATASE 66 U/L (45-117); ALT/SGPT 18 U/L (12-78); AST/SGOT 10 U/L (15-37); BLOOD UREA NITROGEN 18 mg/dl (7-18); CALCIUM 9.1 mg/dl (8.5-10.1); CARBON DIOXIDE 29 mmol/L (21-32); CHOLESTEROL 203 mg/dl (0-200); CREATININE 0.89 mg/dl (0.60-1.20); GLUCOSE 94 mg/dl (70-99); LDL CHOLESTEROL CALCULATED 122 mg/dl; POTASSIUM 4.4 mmol/L (3.5-5.1); SODIUM 140 mmol/L (136-145); TOTAL PROTEIN 6.9 gm/dl (6.4-8.2)
== END | disposition home or self-care (01) ==
LOC: C.LABBFT 10:48
PROVIDERS: ATTEND Internal Medicine
DX: R73.01 Impaired fasting glucose (principal); I10 Essential (primary) hypertension

== ENCOUNTER 2023-02-07 06:35 | Observation (INO) ==
--- NOTE | 2023-01-13 10:29 | PAT Medication Instructions ---
Medication Instructions Date of Service January 13, 2023 Home Medications Medication Instructions Recorded albuterol sulfate 90 mcg/actuation 2 - 4 puffs inhalation Q6H PRN 05/23/19 aerosol inhaler shortness of breath or wheezing #18 grams ipratropium 0.5 mg-albuterol 3 mg 3 ml inhalation Q4H PRN shortness 05/23/19 (2.5 mg base)/3 mL nebulization of breath or wheezing #90 mL soln alendronate 70 mg tablet (Fosamax) 70 mg PO .COMPLEX #12 tabs 01/07/22 rosuvastatin 5 mg tablet See Rx Instructions .Route 02/03/22 .COMPLEX #90 tabs propranolol 80 mg capsule,24 80 mg PO DAILY #90 caps 08/16/22 hr,extended release lisinopril 10 mg tablet 10 mg PO DAILY #90 tabs 09/19/22 MEDICATION LIST: aspirin 81 mg tablet,delayed release (Adult Aspirin Regimen) 81 mg PO DAILY [id number] 8 mg-folic 400 mcg-K 50 mcg-lutein 300 mcg tablet (Centrum Silver Women) 1 tab PO DAILY albuterol sulfate 90 mcg/actuation aerosol inhaler 2 - 4 puffs inhalation Q6H PRN shortness of breath or wheezing calcium carbonate 600 mg calcium (1,500 mg) tablet (Calcium) 600 mg PO QAM ipratropium 0.5 mg-albuterol 3 mg (2.5 mg base)/3 mL nebulization soln 3 ml inhalation Q4H PRN shortness of breath or wheezing cholecalciferol (vitamin D3) 10 mcg (400 unit) tablet 800 unit PO alendronate 70 mg tablet (Fosamax) 70 mg PO once weekly rosuvastatin 5 mg tablet 1 PO daily propranolol 80 mg capsule,24 hr,extended release 80 mg PO DAILY lisinopril 10 mg tablet 10 mg PO DAILY Medical Marijuana 1 dose PO HS PRN Sleep ascorbic acid (vitamin C) 500 mg tablet (Vitamin C) 500 mg PO DAILY MEDICATION LIST: Continue as directed alendronate 70 mg tablet (Fosamax) 70 mg PO once weekly albuterol sulfate 90 mcg/actuation aerosol inhaler 2 - 4 puffs inhalation Q6H PRN shortness of breath or wheezing (use if needed; BRING TO HOSPITAL) ipratropium 0.5 mg-albuterol 3 mg (2.5 mg base)/3 mL nebulization soln 3 ml inhalation Q4H PRN shortness of breath or wheezing ASK your prescriber and surgeon aspirin 81 mg tablet,delayed release (Adult Aspirin Regimen) 81 mg PO DAILY DO NOT take the morning of surgery cholecalciferol (vitamin D3) 10 mcg (400 unit) tablet 800 unit PO calcium carbonate 600 mg calcium (1,500 mg) tablet (Calcium) 600 mg PO QAM [id number] 8 mg-folic 400 mcg-K 50 mcg-lutein 300 mcg tablet (Centrum Silver Women) 1 tab PO DAILY lisinopril 10 mg tablet 10 mg PO DAILY ascorbic acid (vitamin C) 500 mg tablet (Vitamin C) 500 mg PO DAILY Take morning of surgery With a small sip of water, OTHERWISE NOTHING TO EAT OR DRINK AFTER MIDNIGHT: rosuvastatin 5 mg tablet 1 PO daily propranolol 80 mg capsule,24 hr,extended release 80 mg PO DAILY Take evening before surgery Medical Marijuana 1 dose PO HS PRN Sleep (if needed) Other Notes If you have any questions please call us at [phone] or [phone] or [phone] or [phone]
--- NOTE | 2023-01-23 08:16 | Anesthesiology Consultation ---
Date of Service January 23, 2023 Assessment & Plan (1) Encounter for pre-operative examination: Chart Review Chart Review: Acceptable Risk for Surgery (pending response from PCP re: hyperkalemia ) and Patient seen in Pre Admission Testing - Please send optimization note to PCP re: hyperkalemia (PCP - Dr. Michael Long- [facility]) - Pt is NOT an OPJ candidate (due to patient preferring to stay overnight) (scheduled as 23 hour obs) Per PAT appt on 01/23/23, no recent illness/disease exposures, illness related symptoms, or recent illness/disease positive tests. Will leave to surgeon's d iscretion if preop Covid testing needed Teaching & Discussion Pre-Anesthesia Teaching/Discussion Notes: Instructed NPO after midnight before surgery,except medications with 15 cc of water. Medication instructions provided according to the PAT guidelines. History Surgery Operation Date: 02/07/23 07:00 Proposed Procedures p Left Total Knee Arthroplasty - Roberto Larsen MD Height/Weight Height: 5 ft 1 in Weight: 69.8 kg Allergies Allergy/AdvReac Type Severity Reaction Status Date / Time pollen extracts Allergy Unknown asthma Verified 09/15/22 09:58 flares up Medications Home Medications Medication Instructions Recorded Confirmed Last Taken aspirin 81 mg tablet,delayed 81 mg PO DAILY 11/02/18 01/11/23 Unknown release (Adult Aspirin Regimen) [id number] 8 mg-folic 400 1 tab PO DAILY 11/02/18 01/11/23 Unknown mcg-K 50 mcg-lutein 300 mcg tablet (Centrum Silver Women) albuterol sulfate 90 mcg/actuation 2 - 4 puffs inhalation Q6H PRN 05/23/19 01/11/23 Unknown aerosol inhaler shortness of breath or wheezing #18 grams calcium carbonate 600 mg calcium 600 mg PO QAM 05/23/19 01/11/23 Unknown (1,500 mg) tablet (Calcium) ipratropium 0.5 mg-albuterol 3 mg 3 ml inhalation Q4H PRN shortness 05/23/19 01/11/23 Unknown (2.5 mg base)/3 mL nebulization of breath or wheezing #90 mL soln cholecalciferol (vitamin D3) 10 800 unit PO .COMPLEX 07/04/21 01/11/23 Unknown mcg (400 unit) tablet alendronate 70 mg tablet (Fosamax) 70 mg PO .COMPLEX #12 tabs 01/07/22 01/11/23 Unknown rosuvastatin 5 mg tablet See Rx Instructions .Route 02/03/22 01/11/23 Unknown .COMPLEX #90 tabs propranolol 80 mg capsule,24 80 mg PO DAILY #90 caps 08/16/22 01/11/23 Unknown hr,extended release Medical Marijuana 1 dose PO HS PRN Sleep 01/11/23 01/11/23 Unknown ascorbic acid (vitamin C) 500 mg 500 mg PO DAILY 01/11/23 01/11/23 Unknown tablet (Vitamin C) lisinopril 10 mg tablet 10 mg PO PM 01/23/23 01/23/23 Unknown Past Medical History Medical History (Updated 01/23/23 @ 10:35 by Flory Ervin PA-C) Environmental allergies Hx of basal cell carcinoma s/p excised Insomnia Essential tremor on propranolol- to bilateral hands L>R History of prediabetes no longer prediabetic, no meds Hgb A1C 5.9 per 01/23/23 labs Asthma environmentally induced; well controlled, rarely uses neb/rescue inhaler Osteoporosis Hyperlipidemia HTN (hypertension) Exercise / Class Metabolic Activity II 4-5 Yardwork/Stairs/Walk up hill (one flight of stairs - no chest pain or SOB ) Past Family History Family History Daughter IBS (irritable bowel syndrome) Lactose intolerance Son Lactose intolerance Aunt Lung cancer Breast cancer Ovarian cancer Mother Breast cancer Non Hodgkin's lymphoma Uncle Prostate cancer FH: malignant neoplasm of testis Family/Other Neoplasm of stomach, malignant Past Surgical History Surgical History Hx of basal cell carcinoma excision face Hx of colonoscopy Status post right knee replacement History of tonsillectomy History of oral surgery Status post hysteroscopic ablation of endometrium History of dilatation and curettage History of abdominoplasty Past Anesthesia History No Hx of Anesthesia Complications and No Family Hx of Anesthesia Complications History of PONV No Hx of PONV and No Hx of Motion Sickness Social History Smoking Status: Never smoker Do You Dip or Chew Tobacco: No Hx Alcohol Use: Yes alcohol intake frequency: holidays/special occasions only Hx Substance Use: Yes (medical marijuana- nightly- advised) substance use type: marijuana Last Used Substance Other:: 01/10/23 Review of Systems Recent cold 01/13/23- symptoms improved (had residual cough- has since resolved) Patient denies chest pain, shortness of breath, dyspnea on exertion, reflux, wheezing, palpitations. No hx of seizures, stroke, IN, apnea/snoring. No hx of blood clots or blood transfusions Physical Exam Vital Signs VITALS BP 132/82 P 68 TEMP 98.3 SP02 96% RESP 16 Constitutional no acute distress ENMT Mouth: no TMJ clicking Thyromental Distance: < 3.5 Finger Breadths (3.0) Mallampati Class: I Permanent implant to top right teeth Caps to molars Neck neck extension not limited Respiratory normal respiratory effort; no respiratory distress Auscultation: lungs clear to auscultation bilaterally; no wheezes Cardiovascular Rate/Rhythm: regular rate and regular rhythm Heart Sounds: + murmur (faint/barely audible murmur (chronic per patient) ) Vessels: no carotid bruit (Discussed murmur with Dr. Koehler- intermittent and chronic per patient- very faint- patient with good functional status- patient can proceed as scheduled without further testing) Musculoskeletal Spine: no pain with cervical ROM Extremities: extremities normal to inspection Psychiatric Orientation: alert Lab Results Anesthesia Preop Results Results Anesthesia Widget: WBC 6.12 K/ul (4.8-10.8) 01/23/23 Hgb 13.6 g/dl (12.0-16.0) 01/23/23 Hct 42.0 % (37.0-47.0) 01/23/23 Plt 251 K/uL (130-400) 01/23/23 Na 139 mmol/L (136-145) 01/23/23 K 5.3 mmol/L (3.5-5.1) H 01/23/23 Cl 106 mmol/L (98-107) 01/23/23 CO2 30 mmol/L (21-32) 01/23/23 BUN 17 mg/dl (6-23) 01/23/23 Creat 1.00 mg/dl (0.6-1.2) 01/23/23 Glucose Level 99 mg/dl (70-99(Fasting)) 01/23/23 PT 10.3 Seconds (9.0-12.0) 01/23/23 PTT 26.6 Seconds (21.0-31.0) 01/23/23 INR 0.9 (0.9-1.1) 01/23/23 HA1c 5.9 % (4.5-5.6) H 01/23/23 Blood Type O Positive 01/23/23 Antibody Screen NEGATIVE 01/23/23 Testing Electrocardiogram Date: 01/23/23 Findings: + NSR @ (65bpm ) Normal EKG per cardio Chest X-Ray Date: 01/23/23 Findings: + NAD FINDINGS: Cardiomediastinal and hilar silhouettes are within normal limits. No pneumothorax, pleural effusion or airspace consolidation. Bones appear grossly intact. Mild sigmoid thoracolumbar scoliosis
--- NOTE | 2023-02-04 08:46 | History & Physical Report ---
Date of Service February 04, 2023 Assessment & Plan (1) Left knee DJD: 67-year-old female status post a right knee replacement 5 years ago with left knee DJD. Pain is gotten worse. She failed conservative measures. She like to proceed with left knee replacement. Plan: Vibha taken the operative left total knee replacement for the risks Mente this procedure plan the patient clued but not limited to DVT PE infection neurological and vascular bleeding palm pain limb range of motion test is fairly her symptoms incomplete relief. Need for further surgery in future exceptor. Patient understands and desires to proceed. Informed consent was obtained. On her preoperative work-up her potassium was a bit elevated. She was apparently taken some supplemental potassium and it was rechecked and back within normal limits at 4.9. We will plan on DVT prophylaxis including thigh- high teds, SCDs and aspirin twice a day. She is planned to be discharged to home using [facility] and her 's insurance legal assistant. She has Dr. Tory Michelle she is got an essential tremor and that she is under treatment for this. No need for altering her surgical plan. She will see us back 2 weeks postop. (2) Status post right knee replacement: History of Present Illness Chief Complaint: . Left knee pain and discomfort. Primary Care Provider: Michael Long DO . Patient is a 67-year-old female well-known to me from previous right knee replacement done back in May 2017. She is got a long history of knee problems and we are actually planning on doing the left knee later but she did pretty well after she had a right right knee replaced. She got about 5 more years out of it. Pains become worse over the past year. Describes medial pain but some global pain. The more she is up and out the more it hurts. She has had to use a cane to get around recently. She had multiple injections in the past which have just not helped as much lately. Very happy with the right knee. She like to have her left knee replaced. Allergies Allergy/AdvReac Type Severity Reaction Status Date / Time pollen extracts Allergy Unknown asthma Verified 09/15/22 09:58 flares up Home Medications Medication Instructions Recorded Confirmed Type aspirin 81 mg tablet,delayed 81 mg PO DAILY 11/02/18 01/11/23 History release (Adult Aspirin Regimen) [id number] 8 mg-folic 400 1 tab PO DAILY 11/02/18 01/11/23 History mcg-K 50 mcg-lutein 300 mcg tablet (Centrum Silver Women) albuterol sulfate 90 mcg/actuation 2 - 4 puffs inhalation Q6H PRN 05/23/19 01/11/23 Rx aerosol inhaler shortness of breath or wheezing #18 grams calcium carbonate 600 mg calcium 600 mg PO QAM 05/23/19 01/11/23 History (1,500 mg) tablet (Calcium) ipratropium 0.5 mg-albuterol 3 mg 3 ml inhalation Q4H PRN shortness 05/23/19 01/11/23 Rx (2.5 mg base)/3 mL nebulization of breath or wheezing #90 mL soln cholecalciferol (vitamin D3) 10 800 unit PO .COMPLEX 07/04/21 01/11/23 History mcg (400 unit) tablet alendronate 70 mg tablet (Fosamax) 70 mg PO .COMPLEX #12 tabs 01/07/22 01/11/23 Rx rosuvastatin 5 mg tablet See Rx Instructions .Route 02/03/22 01/11/23 Rx .COMPLEX #90 tabs Medical Marijuana 1 dose PO HS PRN Sleep 01/11/23 01/11/23 History ascorbic acid (vitamin C) 500 mg 500 mg PO DAILY 01/11/23 01/11/23 History tablet (Vitamin C) lisinopril 10 mg tablet 10 mg PO PM 01/23/23 01/23/23 History propranolol 80 mg capsule,24 80 mg PO DAILY #90 caps 01/27/23 01/27/23 Rx hr,extended release Past Med/Surg History Medical History Environmental allergies Hx of basal cell carcinoma s/p excised Insomnia Essential tremor on propranolol- to bilateral hands L>R History of prediabetes no longer prediabetic, no meds Hgb A1C 5.9 per 01/23/23 labs Asthma environmentally induced; well controlled, rarely uses neb/rescue inhaler Osteoporosis Hyperlipidemia HTN (hypertension) Surgical History Hx of basal cell carcinoma excision face Hx of colonoscopy Status post right knee replacement History of tonsillectomy History of oral surgery Status post hysteroscopic ablation of endometrium History of dilatation and curettage History of abdominoplasty Family History Daughter IBS (irritable bowel syndrome) Lactose intolerance Son Lactose intolerance Aunt Lung cancer Breast cancer Ovarian cancer Mother Breast cancer Non Hodgkin's lymphoma Uncle Prostate cancer FH: malignant neoplasm of testis Family/Other Neoplasm of stomach, malignant Social History Smoking Status: Never smoker Second Hand Exposure: No; Do You Dip or Chew Tobacco: No; Tobacco Cessation Education Requested by Patient: No Hx Alcohol Use: Yes Hx Substance Use: Yes (medical marijuana- nightly- advised) Last Used Substance Other:: 01/10/23 Preferred Language: Wolof Communication Ability: Effective [employer] Recruiter Required: No Beliefs That Will Affect Care: None marital status: Current Living Situation: Spouse current occupational status: employed current occupation: self employed, educat. training Other Information That Helps Us Care for You: No Feels Safe at Home: Yes Safety Concerns: Feels Safe At This Time Childhood Exposure to Second-Hand Smoke: Yes Diet: regular caffeine: Yes Dental Care, Regularly: Yes Physical Activity Frequency: 3-4 Times per Week Seatbelt Use: always Sunscreen Use: Yes Assistive Devices: Glasses and Nebulizer Assistive Devices Comment: permanent dental implants Review of Systems All systems reviewed & are unremarkable except as noted in HPI & below. Physical Exam . Physical examination of the left knee reveals the patient to ambulates independently. She got slight varus alignment to her knee. Small knee effusion. She is tender with medial joint line. Range of motion 0-1 20. No instability. No pain with hip motion for examination right knee reveals well- healed incision. No swelling or effusion. Range of motion 0-1 25. Good straight leg raise. Constitutional WD/WN, vitals as above Neck trachea midline, no thyromegaly Respiratory normal respiratory effort, lungs clear to auscultation Cardiovascular RRR, no murmur, no edema Gastrointestinal (Abdomen) normal bowel sounds, soft, nontender, no hepatosplenomegaly Results & Data Results & Data Laboratory Results . Diagnostic Findings . X-rays of the left knee were reviewed. Shows advanced medial compartment arthritis. She is got near complete loss of medial joint space and got osteophytes medially. The right knee replacement looks to be in good position without problems. PG Care Time/CCT Total # of Minutes Spent Total Time Spent with Patient: Total time spent is greater than 50% in coordination of care (as documented) at patient's floor/unit and/or counseling patient: Coding Level of Care Code None Diagnoses Left knee DJD M17.12 Status post right knee replacement Z96.651
[~2023-02-07 06:35] MED LIST changes: -ACET-24 PO; +ACETAMINOPHEN 500 MG TAB PO SCH; -ASPI-320 PO; +BUPIVACAINE 0.5 % 5 MG/1 ML PF 10ML VIAL ONE; +BUPIVACAINE LIPOSOME/PF 266 MG, BUPIVACAINE/EPINEPHRINE 50 ML, SODIUM CHLORIDE 0.9% PF ... INFIL SCH; -CHOL200027 PO; +CeleBREX 200 MG CAP PO SCH; +FAMOTIDINE 20 MG TAB PO SCH; -FRRG PO; -GLC/500 PO; -LISI-461 PO; +LR 500ML BOLUS, THEN 15ML/HR IV SCH; +LR 60ML/HR IV SCH; +METOCLOPRAMIDE HCL 10 MG TABLET PO SCH; -MISCCAP80 PO; -MULT-506 PO; -PROP1TAB PO; -PRVIN525 NEB; +ROPIVACAINE 0.5% 5 MG/ML 30 ML VIAL ONE; -RXC5 PO; +Scopolamine 1 MG TDSY TD SCH; +TRANEXAMIC ACID 1,000 MG **IV Intra-op IV SCH; -VNTHFA/IN INH; +ceFAZolin 2000MG 2,000 MG/15 ML SYR IV SCH; +dexAMETHasone**PF** 10 MG/ML VIAL IV SCH
--- NOTE | 2023-02-07 06:50 | History & Physical Bridge Note ---
Date of Service February 07, 2023 History & Physical Bridge Note I have examined the patient, reviewed the History & Physical and in the interval since the performance of the History & Physical I have noted the following changes of clinical significance: no changes noted
[2023-02-07] MEDS ORDERED: MIDAZOLAM HCL 1 MG/ML 2ML VIAL ONE (07:24)
[2023-02-07] MEDS ORDERED: fentaNYL citrate PF 100 MCG/2 ML VIAL ONE (07:24)
[2023-02-07] MEDS ORDERED: ONDANSETRON INJ 2 MG/ML 2 ML VIAL IV PRN ×2 (07:34→12:55)
[2023-02-07] MEDS ORDERED: ATROPINE SULFATE 0.1 MG/ML 10ML SYR IV PRN (07:34)
[2023-02-07] MEDS ORDERED: fentaNYL citrate PF 100 MCG/2 ML VIAL IV PRN (07:34)
[2023-02-07] MEDS ORDERED: ePHEDrine sulfate 50 MG/ML AMP IV PRN (07:34)
[2023-02-07] MEDS ORDERED: PROPOFOL IV EMULSION 10 MG/ML 20 ML VIAL IV ONE (08:18)
[2023-02-07] MEDS ORDERED: ONDANSETRON INJ 2 MG/ML 2 ML VIAL ONE (08:18)
[2023-02-07] MEDS ORDERED: SODIUM CHLORIDE 0.9% PF 50 ML VIAL ONE (09:00)
[2023-02-07] MEDS ORDERED: BUPIVACAINE/EPINEPHRINE 0.25% 1:200,000 30 ML VIAL ONE (09:00)
[2023-02-07] MEDS ORDERED: BUPIVACAINE LIPOSOME 1.3% 266 MG/20 ML VIAL ONE (09:01)
[2023-02-07] MEDS ORDERED: ePHEDrine sulfate 50 MG/ML AMP ONE (10:17)
--- NOTE | 2023-02-07 11:26 | Operative Report ---
PG Post Operative Report Pre & Post Diagnosis Operation Date: 02/07/23 08:50 Pre-Op Diagnosis: Left Knee Advanced Degenerative Joint Disease Post-Op Diagnosis: Left Knee Advanced Degenerative Joint Disease I identified the patient and participated in the time-out.: Yes Procedure Operation Date: 02/07/23 08:50 Actual Procedures p Left Total Knee Arthroplasty(Left) - Roberto Larsen MD Surgeon Roberto Larsen MD Medical Director Of Hospice Maxime Smith PA-C Estimated Blood Loss 50 Findings Consistent with Post-Op Diagnosis Operative findings were advanced left medial foot DJD. She had extensive grade 4 [id number] disease medial compartment. The rest knee was pretty well- preserved. Moderate-sized joint effusion. Specimens Left knee sent for pathology Anesthesia Type Spinal MAC Complications none Disposition Accompanied Patient To Recovery: No Indications Patient is a 67-year-old female who said a long history of knee problems in years. She had a right knee replaced about 5 years ago was done pretty well from this. She continued Biovea left knee pain discomfort is gradually gotten worse over time. She failed conservative measures. X-rays showed advanced medial compartment arthritis. She elected proceed with total knee arthroplasty. Description of Procedure Operative implants consist of: 1 Biomet Vanguard size 60 left Po stabilized femoral component. 2. Biomet size 63 tibial tray. 3. 14 mm posterior polyethylene insert. 4. 28 x 8 all poly patella. The patient was taken the operating, identified, and placed on the operating table supine position but all contractors were properly padded. IV antibiotics were by anesthesia team. A spinal anesthetic and been implemented holding area. Villavicencio catheter was placed in sterile fashion. A left thigh turn was then placed. Left lower extremities and prepped draped in usual sterile fashion. Left leg was elevated exsanguinated with use of an Esmarch and the turn was placed at 3 mmHg. An anterior approach the left knee was then performed to longitudinal incision centered over the patella. Sharp dissection Through subcutaneous tissue down the extensor mechanism. A medial parapatellar arthrotomy incision was made. Some subperiosteal dissection was carried out medially. The fat pad was resected from Neath patella tendon. Lateral patellofemoral ligament was released. Patella subluxated laterally and the knee was flexed. The osteophytes taken off distal femur. The ACL and PCL were then released from distal femur the tibia subluxated anteriorly. The external tibial alignment jig was then placed in the interface the tibia and adjusted 14 mm medially. Proximal tibial cut was made remove about 2 to 3 mm bone from medial side. Tibia sized to a size 67. Attention drawn the femur. The distal femur during the sharp drop with intramedullary canal was suction. A left 5 degree valgus cutting guide was placed. This femoral cutting block was pinned in place. This femoral cut was made take an additional 3 mm of bone off distal femur. The femur was then sized to a size 60. The AP cutting block was pinned parallel to the epicondylar axis which was 5 degrees of external rotation . Anterior cut, anterior chamfer, posterior cut, posterior chamfer cuts were made. The box cutting guide was placed in just slight lateral and the box cut was made. The knee was flexed. The remnants of the medial and lateral menisci were excised. The osteophytes taken off the posterior aspect of femur. Trial femoral component was placed. The tibial tray was pinned in maximum external rotation and the drill and stem punch used to create defect in proximal tibia for the tibial tray. The knee was then trialed and the 14 mm insert fit most appropriately. Attention on the patella. The patella was cleaned of all soft tissue. Patella thickness measured 20 mm in thickness was cut down to 13. Was sized to a size 28 patella. The lug holes were drilled for the 28 patella. The lateral osteophyte was removed. Patella button was placed. Knee was taken through range of motion and the patella tracked nicely with no thumbs test. Attention drawn to placing permanent components. All trial components were removed. Bone plug was placed in the distal femur limit blood loss. Double batch Palacos G cement was mixed. Biomet Vanguard siz 60 left posterior stabilized femoral component, size 63 tibial tray, 14 mm pro stabilized polyethylene insert, and 28 x 8 all poly patella then cemented in place. The knee was brought out into full extension till cement hardened. Final cement check was then performed. Pericapsular tissues were injected with total 100 cc of combination of 20 cc of Exparel, 30 cc of normal saline, 50 cc of quarter percent Marcaine with epinephrine. Patient did receive 1 g tranexamic acid. The tourniquet was then let down for final tourniquet time 57 minutes. Hemostasis reduced electrocautery. Extensor mechanism closed with combination 1 PDS suture #1 Vicryl suture in a [id number] fashion. The extensor mechanism checked found to be intact the subcutaneous tissues then closed with 2 Dexon suture in buried interrupted fashion skin was closed skin zackery. Leg was then cleaned and dried and sterile dressing was Xeroform, 4 fours, sterile cast padding, Michael bandage were applied. Patient then transferred to the recovery room in stable condition. Patient tolerated procedure well and there were no complications. Dayne Smith, my physician assistant store manager, was present for the entire procedure. His assistance was required for proper patient positioning, prepping and draping, surgical exposure, retraction, performing the technical details of the operation, implantation of the implants, closure of the incision site and placement of sterile bandage. I attest to the content of the Intraoperative Record and any orders documented therein. Any exceptions are noted below.
--- NOTE | 2023-02-07 12:15 | Anesthesiology Progress Note ---
Date of Service February 07, 2023 Anesthesia Post Procedure Vital Signs Vital Signs: Temp Pulse Pulse Resp BP Pulse Ox O2 Del Method 02/07/23 11:55 98.1 F 65 16 110/65 95 Room Air 02/07/23 11:45 77 16 115/70 99 Oxymask 02/07/23 11:35 64 12 118/69 97 Oxymask 02/07/23 11:25 63 18 112/72 98 Oxymask 02/07/23 11:15 98.1 F 64 16 129/72 99 Oxymask 02/07/23 07:05 98.6 F 66 18 178/98 H 98 Room Air O2 Flow Rate 02/07/23 11:55 02/07/23 11:45 4 02/07/23 11:35 4 02/07/23 11:25 4 02/07/23 11:15 6 02/07/23 07:05 Transfer of Care Handoff Completed per policy Notes Mental Status: alert / awake / arousable and participated in evaluation Patient Amnestic to Procedure: Yes Nausea / Vomiting: adequately controlled Pain: adequately controlled Airway Patency, RR, SpO2: stable & adequate BP & HR: stable & adequate Hydration State: stable & adequate Neuraxial Anesthesia: was administered and sensory block is resolving Anesthetic Complications: no major complications apparent and Pt Satisfied with anesthetic care
[2023-02-07] MEDS ORDERED: ALBUT/IPRATROP 3MG/0.5MG NEB 3 ML VIAL INH PRN (12:55)
[2023-02-07] MEDS ORDERED: MAGNESIUM HYDROXIDE SUSP 30 ML UDC PO PRN (12:55)
[2023-02-07] MEDS ORDERED: METOCLOPRAMIDE HCL INJ 5 MG/ML 2 ML VIAL IV PRN (12:55)
[2023-02-07] MEDS ORDERED: bisacodyL 10 MG SUPP PR PRN (12:55)
[2023-02-07] MEDS ORDERED: oxyCODONE HCL IR 5 MG TAB (IMMEDIATE RELEASE) PO PRN (12:55)
[2023-02-07] MEDS ORDERED: ALUMINUM/MAGNESIUM SUSP 30 ML UDC PO PRN (12:55)
[2023-02-07] MEDS ORDERED: ALBUTEROL HFA 8 GM INHALER INH PRN (12:55)
[2023-02-07] MEDS ORDERED: NALOXONE HCL 0.4 MG/1 ML VIAL/CARP IV PRN (12:55)
[2023-02-07] MEDS ORDERED: HYDROmorphone INJ 0.5 MG/0.5 ML SYR IV PRN (12:55)
--- NOTE | 2023-02-07 13:02 | XRay Report ---
XR knee LT 1 or 2V routine CLINICAL HISTORY: Surgical Post Op TECHNIQUE: 2 views of the left knee were obtained. Comparison: Comparison is made to knee radiographs 09/15/2022 FINDINGS: Patient is status post total knee arthroplasty with expected postsurgical changes including soft tiss ue swelling and subcutaneous emphysema. No periarticular lucency or hardware fracture is seen. IMPRESSION: Expected postoperative appearance status post placement of total knee arthroplasty. ACT 112: Negative or not required by law. Electronically signed by: Aaron Scott M.D. 02/07/2023 1:01 PM
[2023-02-07] MEDS: SODIUM CHLORIDE 0.9% 1,000 ML IV SCH ×2 (13:11→23:12)
[2023-02-07] MEDS ORDERED: MEDICAL MARIJUANA PO PRN (13:46)
[2023-02-07] MEDS: KETOROLAC TROMETHAMINE 15 MG/ML VIAL IV SCH ×2 (13:52→20:21)
[2023-02-07] MEDS: ACETAMINOPHEN 500 MG TAB PO SCH ×2 (13:58→23:11)
[2023-02-07] MEDS: Scopolamine CHECK PATCH PLACEMENT SCH (16:02)
[2023-02-07] MEDS: ceFAZolin 1000MG 1,000 MG/7.5 ML SYR IV SCH (16:36)
[2023-02-07] MEDS ORDERED: TRANEXAMIC ACID / 0.7% NACL 1,000 MG/100 ML BAG IV SCH (18:00)
[2023-02-07] MEDS: DOCUSATE SODIUM 100 MG CAP PO SCH (20:21)
[2023-02-07] MEDS: ASPIRIN 81 MG ECTAB PO SCH (20:22)
[2023-02-07] MEDS ORDERED: SENNA 8.6 MG TAB PO SCH ×2 (21:00)
[2023-02-07] MEDS ORDERED: ROSUVASTATIN CALCIUM 5 MG TAB PO SCH (21:00)
[2023-02-07] MEDS ORDERED: lisinopril 10 MG TAB PO SCH (21:00)
[2023-02-08] MEDS: Scopolamine CHECK PATCH PLACEMENT SCH ×2 (00:02→08:10)
[2023-02-08] MEDS: ceFAZolin 1000MG 1,000 MG/7.5 ML SYR IV SCH (01:48)
[2023-02-08] MEDS: KETOROLAC TROMETHAMINE 15 MG/ML VIAL IV SCH ×2 (01:49→08:13)
[2023-02-08] MEDS: ACETAMINOPHEN 500 MG TAB PO SCH (05:19)
[2023-02-08 06:40] LABS: Hematocrit (blood only) 33.5 % (37.0-47.0); Hemoglobin 11.1 g/dl (12.0-16.0); Mean Corpuscular Hemoglobin 28.9 pg (25.0-34.0); Mean Corpuscular Hgb Conc 33.1 g/dL (32.0-36.0); Mean Corpuscular Volume 87.2 fL (80.0-100.0); Mean Platelet Volume 10.1 fL (9.4-12.4); Platelet Count 221 K/uL (130-400); RDW Coefficient of Variation 12.8 % (11.5-14.5); Red Blood Count 3.84 M/uL (4.20-5.40); White Blood Count 13.64 K/ul (4.8-10.8)
[2023-02-08 07:10] LABS: BUN Creatinine Ratio 14.6 (10-20); Calcium 8.7 mg/dl (8.6-10.3); Creatinine Clr Calc Pharmacy 54.6 ml/min; Est GFR (African American) 77.7 ml/min; Est GFR (Non-African American) 67.1 ml/min; Potassium 4.5 mmol/L (3.5-5.1)
[2023-02-08] MEDS ORDERED: dexAMETHasone 10 MG in SYRINGE 0 ML IV SCH (08:00)
[2023-02-08] MEDS: ASPIRIN 81 MG ECTAB PO SCH (08:10)
[2023-02-08] MEDS: DOCUSATE SODIUM 100 MG CAP PO SCH (08:10)
[2023-02-08] MEDS ORDERED: MULTIVITAMIN TAB PO SCH (09:00)
[2023-02-08] MEDS ORDERED: CALCIUM CARBONATE 1250MG TAB PO SCH (09:00)
[2023-02-08] MEDS ORDERED: PROPRANOLOL HCL LA 80 MG CAPCR PO SCH (09:00)
[2023-02-08] MEDS ORDERED: ASCORBIC ACID 500 MG TAB PO SCH (09:00)
[2023-02-08] MEDS ORDERED: CHOLECALCIFEROL 400 UNITS 10 MCG TAB PO SCH (09:00)
[2023-02-08] MEDS ORDERED: CEROVITE ADV FORMULA TAB PO SCH (09:00)
--- NOTE | 2023-02-08 12:06 | Surgery Progress Note ---
Date of Service February 08, 2023 Assessment & Plan (1) Status post left knee replacement: Plan: 67-year-old female postop day 1 from a left knee replacement. She is doing quite well. Pain is controlled. She is getting around well. She is hoping to go home. Plan: 1. DVT prophylaxis including thigh-high teds, SCDs, aspirin twice a day. 2. PT OT. Weight-bear as tolerated left total knee protocol 3. Pain control doing well with current pain regimen. 4. Disposition plan to discharge home with some home health today. Admission and Anticipated Discharge Date Admission Date: February 07, 2023 Subjective 67-year-old female postop day 1 from left knee replacement. She is doing well. Had a good night. Pain is controlled. Hoping to go home today. No chest pain or shortness of breath. Not feeling dizzy or lightheaded. Physical Exam Physical Exam: Physical exam shows a pleasant middle-age female. She sat in bed looks quite well this morning. Examination left leg reveals dressing clean dry and intact patient dorsiflex and plantarflex her foot appropriate. She can do a very good straight leg raise. She is neurologically intact. Respiratory: normal respiratory effort, lungs clear to auscultation Cardiovascular: RRR, no murmur, no edema Gastrointestinal (Abdomen): normal bowel sounds, soft, nontender, no hepat osplenomegaly Results & Data Vital Signs (Past 12 Hours) Vital Signs Temp Pulse Resp BP Pulse Ox O2 Del Method 02/08/23 10:36 36.8 C 67 18 120/70 99 02/08/23 07:07 36.8 C 67 18 120/70 99 Room Air 02/08/23 03:01 36.6 C 62 18 124/71 97 Room Air Laboratory Results Hemoglobin is 11.1. Hematocrit is 33.5. Electrolytes are stable. PG Care Time/CCT Total # of Minutes Spent Total Time Spent with Patient: Total time spent is greater than 50% in coordination of care (as documented) at patient's floor/unit and/or counseling patient: Coding Level of Care Code 65282 Post Operative Follow-Up Diagnoses Status post left knee replacement Z96.652
== END 2023-02-08 11:13 | disposition home health service (06) ==
LOC: ASU 06:35 → 3E 06:35